=== PATIENT | male | born 1970 | race Caucasian/White ===

== ENCOUNTER 2023-09-26 00:07 | Inpatient (IN) ==
--- NOTE | 2023-09-26 00:37 | Emergency Department Note ---
Impression & Plan Pericardial effusion, Syncope, UTI (urinary tract infection), SIRS (systemic inflammatory response syndrome) Admit to the ICU ED Provider Note NAME: HAILEY LOPEZ AGE: 52 SEX: Male INFORMANT: Patient and his ED PROVIDER(S): Hilary Barone DO CHIEF COMPLAINT: Syncope PLAN: Admit to the [facility] Hospitalist and interventional cardiology to drain the pericardial effusion MEDICAL DECISION MAKING: This is a 52-year-old male patient who presents with left-sided chest discomfort for the past 1 week as a result of straining his chest using dumbbells. Tonight, the patient felt a wave of nausea and got up quickly to go to the bathroom and had a syncopal event. On presentation to the emergency department, the patient was hypotensive and tachycardic. Laboratory studies revealed a leukocytosis with a white blood cell count of 18.5. He had an elevated BUN at 27. Physical exam revealed signs of dehydration. Transaminases were elevated and total bilirubin was 1.9. The patient was afebrile. Possible source of infection was his urine. Lactate and procalcitonin were normal. While here in the emergency department receiving an IV dose of cefepime, the patient had an episode of bradycardia down into the 40s and a second episode of syncope. He was laid flat in the Trendelenburg position as he was significantly hypotensive with a systolic blood pressure in the 70s. At this point a CT scan of the chest was obtained given the patient's weeklong history of left-sided chest discomfort which she thought was secondary to a muscle strain from going to the gym. The CT showed evidence of a large pericardial effusion with significant pericardial thickening. There were no obvious signs of tamponade at this point. I discussed the case with Dr. Alvarado from cardiology and he will take the patient to the [facility] for pericardiocentesis. Care/management discussed with: manager image, [facility] Hospitalist, wrapper selector Triage Nursing notes: Reviewed and agree with them. Vital Signs: reviewed and remarkable for hypotension and tachycardia Additional History obtained from: His is at the bedside Differential Diagnosis: Renal failure, dehydration, cardiac dysrhythmia, cardiac ischemia, sepsis Diagnostics, independently interpreted by me: ECG: Sinus tachycardia at a rate of [address] segment elevation or signs of ischemia. There is no ectopy. QTc is 400 ms. Cardiac Monitoring: Sinus tachycardia at 120 Imaging studies: Portable chest x-ray: Mild cardiomegaly with no significant pulmonary infiltrates or opacities as per my independent interpretation CTA of the chest: As per stat read HPI: 52 year old Male arrives for evaluation of syncope. the patient felt a wave of nausea and got up quickly to go to the bathroom and had a syncopal event. Patient was brought here to the emergency department for evaluation. He explains that over the past 1 week he has had some left-sided chest discomfort after he thought that he strained his pectoral muscle with a dumbbell 9 days ago. He has been using Aleve for the pain. PAST MEDICAL HISTORY: GERD, sleep apnea SOCIAL HISTORY: Lives with his , does not smoke. 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 Pupils are equal, round, and reactive to light. Extraocular eye muscles are intact and sclera are anicteric. Ears - bilaterally patent canals with noninjected tympanic membranes and no evidence of hemotympanum. Nose - moist nasal mucosa without discharge. Mouth - moist buccal mucosa. Oropharynx is nonerythematous and there is no tonsillar exudate or edema noted. Neck: Supple; no JVD, nuchal rigidity, cervical lymphadenopathy, or auscultated bruits. Heart: Tachycardic rate and regular there is a normal S1 and S2 with no murmurs, clicks, or gallops appreciated. Lungs: Clear to auscultation bilaterally with no wheezes, rales, or rhonchi. Abdomen: Soft, completely nontender, nondistended, with good bowel sounds. There are no palpable pulsatile masses or hepatosplenomegaly. There is no guarding, rigidity, or rebound noted. Extremities: No evidence of cyanosis, clubbing, or edema. There are easily palpable peripheral pulses. Neuro:The patient is awake and alert, oriented to day, time, and place. Muscle strength is 5/5 in all 4 extremities. The patient has equal plasterer stucco strength and equal pedal push and pull. There are no cerebellar signs. Emergency department treatment: school bus monitor, IV normal saline bolus x 3, IV cefepime Emergency department course: The patient was evaluated in room A-3. A complete history and physical was performed. An IV lock was initiated and labs were drawn as above. A septic protocol was performed. Urine specimen was obtained. A portable chest x-ray was performed. Bio fire was performed. An order was placed for continuous cardiac monitoring. The patient was in a sinus tachycardia at a rate of 120. A twelve-lead EKG was obtained. Patient was bolused with IV normal saline solution. Patient continued to receive additional IV normal saline up to 30 mL/kg per sepsis protocol. He was bolused with IV cefepime for what appeared to be a urinary tract infection. During that bolus, the patient became bradycardic with a heart rate in the 40s. Nursing staff alerted me and I came to the bedside and found the patient somewhat responsive. He was placed in the Trendelenburg position. A second IV lock was initiated and the patient was bolused with additional IV normal saline solution. Patient's systolic blood pressure dropped into the 70s. After short period of time, his blood pressure rebounded. Patient went for dissection study of the chest to rule out aortic dissection and/or PE. This revealed a large pericardial effusion with a significantly thickened pericardial wall. I immediately contacted Dr. Alvarado from interventional cardiology who recommended we call a heart alert. They evaluated the patient. I contacted the [facility] Hospitalist who also evaluated the patient. I have personally spent greater than 70 minutes of critical care time in the direct management of this patient. This includes bedside care, interpretation of diagnostic studies, and testing, discussion with consultants, patient, and family members, and other required patient management activities. This 70 minutes is in excess of all separately billable procedures. Past Med/Surg History Social History Smoking Status: Never smoker Tobacco Type: Cigarettes Hx Alcohol Use: No Hx Substance Use: No Preferred Language: Mongolian Beliefs That Will Affect Care: None Current Living Situation: Spouse Other Information That Helps Us Care for You: No Feels Safe at Home: Yes Safety Concerns: Feels Safe At This Time Assistive Devices: Glasses Allergies Allergies Allergy/AdvReac Type Severity Reaction Status Date / Time cat dander Allergy Intermediate CONGESTION Verified 09/26/23 00:44 house dust Allergy Intermediate CONGESTION Verified 09/26/23 00:44 Home Meds Home Medications Medication Instructions Recorded Confirmed naproxen sodium 220 mg tablet 220 mg PO BID PRN Pain 09/26/23 09/26/23 (Aleve) omeprazole magnesium 20 mg 20 mg PO DAILY 09/26/23 09/26/23 tablet,delayed release (Prilosec OTC) Results & Data (ED) Vital Signs Vital Signs - 24 hr 09/26/23 00:11 09/26/23 00:14 Temperature 37.5 C Temperature Source Oral Pulse Rate 120 H Respiratory Rate 18 Respiratory Effort / Characteristics Non-Labored Respiratory Depth Normal Respiratory Pattern Regular Blood Pressure 98/65 L Blood Pressure Mean 76 Pulse Oximetry 96 Oxygen Delivery Method Room Air Room Air Sepsis Recent Fever Within 48 Hours No Sepsis New/Unexplained Change in Mental Status N/A Sepsis Action Taken by Nursing No Action Required Laboratory Data 09/27/23 04:35 09/27/23 04:35 Lab Results 09/26/23 09/26/23 09/26/23 Range/Units 00:12 01:22 02:21 WBC 18.51 H (4.8-10.8) K/ul RBC 5.07 (4.70-6.10) M/uL Hgb 14.9 (14.0-18.0) g/dl Hct 45.1 (42.0-52.0) % MCV 89.0 (80.0-100.0) fL MCH 29.4 (25.0-34.0) pg MCHC 33.0 (32.0-36.0) g/dL RDW Std Deviation 47.0 H (36.4-46.3) fL RDW Coeff of Chata 14.6 H (11.5-14.5) % Plt Count 359 (130-400) K/uL MPV 9.9 (9.4-12.4) fL Immature Gran % (Auto) 0.9 % Neut % (Auto) 75.2 % Lymph % (Auto) 12.8 % [place] % (Auto) 10.6 % Eos % (Auto) 0.2 % Baso % (Auto) 0.3 % Neut # (Auto) 13.92 H (1.40-6.50) K/uL Lymph # (Auto) 2.37 (1.20-3.40) K/uL [place] # (Auto) 1.96 H (0.11-0.59) K/uL Eos # (Auto) 0.03 (0.00-0.50) K/uL Baso # (Auto) 0.06 (0.00-0.20) K/uL Immature Gran # (Auto) 0.17 (0.01-0.20) K/uL ESR 50 H (0-20) mm/hr PT 11.8 (9.0-12.0) Seconds INR 1.1 (0.9-1.1) Sodium 133 L (136-145) mmol/L Potassium 4.6 (3.5-5.1) mmol/L Chloride 98 (98-107) mmol/L Carbon Dioxide 27 (21-32) mmol/L Anion Gap 8 (3-11) BUN 27 H (6-23) mg/dl Creatinine 1.24 (0.6-1.4) mg/dl Est Cr Clr Drug Dosing Not Reportable Est GFR ( Amer) 76.4 ml/min Est GFR (Non-Af Amer) 66.0 ml/min BUN/Creatinine Ratio 21.8 H (10-20) Glucose 158 H (70-99(Fasting)) mg/dl POC Glucose (70-99) mg/dl Lactate 1.8 (0.4-2.0) mmol/L Calcium 9.4 (8.6-10.3) mg/dl Total Bilirubin 1.9 H (0.2-1.0) mg/dl AST 37 (13-39) U/L ALT 57 H (7-52) U/L Alkaline Phosphatase 186 H (34-104) U/L Troponin I High Sens 17.4 (0-20) pg/ml C-Reactive Protein 27.30 H (0-0.5) mg/dl Total Protein 7.1 (6.0-8.3) gm/dl Albumin 3.8 (3.4-5.0) gm/dl Globulin 3.3 (2.5-4.0) gm/dl Albumin/Globulin Ratio 1.2 (0.9-2) Procalcitonin 0.20 (0-0.5) ng/ml TSH 3.653 (0.300-4.500) uIu/ml Urine Color Chase Urine Appearance Cloudy A (Clear) Urine pH 5.0 (4.5-7.5) Ur Specific [place] 1.041 H (1.000-1.030) Urine Protein 2+ H (Negative) Urine Glucose (UA) Trace H (Negative) Urine Ketones Negative (Negative) Urine Blood Trace H (Negative) Urine Nitrite Positive A (Negative) Urine Bilirubin 2+ H (Negative) Urine Urobilinogen Negative (Negative) Ur Leukocyte Esterase 1+ H (Negative) Urine RBC 5-10 H (0-4) /hpf Urine WBC 5-10 H (0-5) /hpf Ur Epithelial Cells 0-5 (0-5) /lpf Urine Bacteria 1+ H (Negative) Hyaline Casts 0-5 (0-5) /lpf Urine Mucus Present A (None Prsent) Adenovirus (PCR) Not Detected (NotDetected) B. pertussis DNA (PCR) Not Detected (NotDetected) B.parapertussis DNA PCR Not Detected (NotDetected) C. pneumoniae DNA (PCR) Not Detected (NotDetected) Coronavirus OC43 (PCR) Not Detected (NotDetected) Coronavirus HKU1 (PCR) Not Detected (NotDetected) Coronavirus 229E (PCR) Not Detected (NotDetected) SARS-CoV-2 (PCR) Not Detected (NotDetected) Coronavirus NL63 (PCR) Not Detected (NotDetected) Human Metapneumovir PCR Not Detected (NotDetected) Influenza Type A (PCR) Not Detected (NotDetected) Influenza Type B (PCR) Not Detected (NotDetected) M. pneumoniae (PCR) Not Detected (NotDetected) Parainfluenza 1 (PCR) Not Detected (NotDetected) Parainfluenza 2 (PCR) Not Detected (NotDetected) Parainfluenza 3 (PCR) Not Detected (NotDetected) Parainfluenza 4 (PCR) Not Detected (NotDetected) RSV (PCR) Not Detected (NotDetected) Entero/Rhino (PCR) Not Detected (NotDetected) Blood Type Antibody Screen 09/26/23 09/26/23 Range/Units 02:41 03:36 WBC (4.8-10.8) K/ul RBC (4.70-6.10) M/uL Hgb (14.0-18.0) g/dl Hct (42.0-52.0) % MCV (80.0-100.0) fL MCH (25.0-34.0) pg MCHC (32.0-36.0) g/dL RDW Std Deviation (36.4-46.3) fL RDW Coeff of Chata (11.5-14.5) % Plt Count (130-400) K/uL MPV (9.4-12.4) fL Immature Gran % (Auto) % Neut % (Auto) % Lymph % (Auto) % [place] % (Auto) % Eos % (Auto) % Baso % (Auto) % Neut # (Auto) (1.40-6.50) K/uL Lymph # (Auto) (1.20-3.40) K/uL [place] # (Auto) (0.11-0.59) K/uL Eos # (Auto) (0.00-0.50) K/uL Baso # (Auto) (0.00-0.20) K/uL Immature Gran # (Auto) (0.01-0.20) K/uL ESR (0-20) mm/hr PT (9.0-12.0) Seconds INR (0.9-1.1) Sodium (136-145) mmol/L Potassium (3.5-5.1) mmol/L Chloride (98-107) mmol/L Carbon Dioxide (21-32) mmol/L Anion Gap (3-11) BUN (6-23) mg/dl Creatinine (0.6-1.4) mg/dl Est Cr Clr Drug Dosing Est GFR ( Amer) ml/min Est GFR (Non-Af Amer) ml/min BUN/Creatinine Ratio (10-20) Glucose (70-99(Fasting)) mg/dl POC Glucose 147 H (70-99) mg/dl Lactate (0.4-2.0) mmol/L Calcium (8.6-10.3) mg/dl Total Bilirubin (0.2-1.0) mg/dl AST (13-39) U/L ALT (7-52) U/L Alkaline Phosphatase (34-104) U/L Troponin I High Sens (0-20) pg/ml C-Reactive Protein (0-0.5) mg/dl Total Protein (6.0-8.3) gm/dl Albumin (3.4-5.0) gm/dl Globulin (2.5-4.0) gm/dl Albumin/Globulin Ratio (0.9-2) Procalcitonin (0-0.5) ng/ml TSH (0.300-4.500) uIu/ml Urine Color Urine Appearance (Clear) Urine pH (4.5-7.5) Ur Specific [place] (1.000-1.030) Urine Protein (Negative) Urine Glucose (UA) (Negative) Urine Ketones (Negative) Urine Blood (Negative) Urine Nitrite (Negative) Urine Bilirubin (Negative) Urine Urobilinogen (Negative) Ur Leukocyte Esterase (Negative) Urine RBC (0-4) /hpf Urine WBC (0-5) /hpf Ur Epithelial Cells (0-5) /lpf Urine Bacteria (Negative) Hyaline Casts (0-5) /lpf Urine Mucus (None Prsent) Adenovirus (PCR) (NotDetected) B. pertussis DNA (PCR) (NotDetected) B.parapertussis DNA PCR (NotDetected) C. pneumoniae DNA (PCR) (NotDetected) Coronavirus OC43 (PCR) (NotDetected) Coronavirus HKU1 (PCR) (NotDetected) Coronavirus 229E (PCR) (NotDetected) SARS-CoV-2 (PCR) (NotDetected) Coronavirus NL63 (PCR) (NotDetected) Human Metapneumovir PCR (NotDetected) Influenza Type A (PCR) (NotDetected) Influenza Type B (PCR) (NotDetected) M. pneumoniae (PCR) (NotDetected) Parainfluenza 1 (PCR) (NotDetected) Parainfluenza 2 (PCR) (NotDetected) Parainfluenza 3 (PCR) (NotDetected) Parainfluenza 4 (PCR) (NotDetected) RSV (PCR) (NotDetected) Entero/Rhino (PCR) (NotDetected) Blood Type A Positive Antibody Screen NEGATIVE Administered Medications Acetaminophen (Acetaminophen 325 Mg Tab) 650 mg PO Q4H PRN PRN Reason: Pain Stop: 10/26/23 14:19 Last Admin: 09/27/23 03:46 Dose: 650 mg Documented By: Admin: 09/26/23 14:51 Dose: 650 mg Documented By: AMB Colchicine (Colchicine 0.6 Mg Tab) 0.6 mg PO BID [facility] Stop: 10/26/23 09:59 Last Admin: 09/26/23 20:35 Dose: 0.6 mg Documented By: Admin: 09/26/23 11:04 Dose: 0.6 mg Documented By: HERBERT Cefepime HCl 2,000 mg/ Syringe 20 mls @ 5 mls/min IV Q8H [facility]; Protocol Stop: 10/06/23 10:29 Last Admin: 09/27/23 02:45 Dose: 5 mls/min Documented By: Admin: 09/26/23 17:36 Dose: 5 mls/min Documented By: Admin: 09/26/23 11:04 Dose: 5 mls/min Documented By: HERBERT Miscellaneous (Icu Protocol For Hyperglycemia) 1 each N/A ACHS [facility] Stop: 09/28/23 08:07 Last Admin: 09/27/23 07:41 Dose: Not Given Documented By: Admin: 09/26/23 20:36 Dose: 1 each Documented By: Admin: 09/26/23 16:57 Dose: Not Given Documented By: Admin: 09/26/23 12:15 Dose: Not Given Documented By: Admin: 09/26/23 08:46 Dose: Not Given Documented By: HERBERT Morphine Sulfate (Morphine Sulfate 2 Mg/Ml Carp) 2 mg IV Q6H PRN PRN Reason: Moderate Pain (Scale 4, 5, 6) Stop: 10/10/23 21:49 Last Admin: 09/27/23 05:30 Dose: 2 mg Documented By: Admin: 09/26/23 22:06 Dose: 2 mg Documented By: SERVANDO Pantoprazole Sodium (Pantoprazole 40 Mg Tab) 40 mg PO DAILY [facility] Stop: 10/26/23 08:59 Last Admin: 09/26/23 11:04 Dose: 40 mg Documented By: HERBERT Discontinued Medications Fentanyl Citrate (Fentanyl Citrate Pf 100 Mcg/2 Ml Vial) Confirm Administered Dose 100 mcg .ROUTE .STK-MED ONE Stop: 09/26/23 04:25 Last Increment: 09/26/23 07:05 Dose: 50 mcg Documented By: SATYA Heparin Sodium (Porcine) (Heparin (Porcine) 1000 Unit/Ml 10 Ml ([facility] Use Only)) Confirm Administered Dose 10,000 units .ROUTE .STK-MED ONE Stop: 09/26/23 04:25 Last Admin: 09/26/23 07:06 Dose: Not Given Documented By: SATYA Heparin Sodium/Sodium Chloride (Heparin In Nss Infusion 1000 Unit/500 Ml (2 U/Ml) Bag) Confirm Administered Dose 3,000 units IV .STK-MED ONE Stop: 09/26/23 04:25 Last Admin: 09/26/23 07:06 Dose: 3,000 units Documented By: SATYA Sodium Chloride (Nss) 1,000 mls @ 999 mls/hr IV .Q1H1M ONE Stop: 09/26/23 01:33 Last Infusion: 09/26/23 01:40 Dose: Infused Documented By: [facility] Admin: 09/26/23 00:40 Dose: 999 mls/hr Documented By: [facility] Sodium Chloride (Nss) 500 mls @ 999 mls/hr IV .Q31M ONE Stop: 09/26/23 01:45 Last Infusion: 09/26/23 02:11 Dose: Infused Documented By: [facility] Admin: 09/26/23 01:39 Dose: 999 mls/hr Documented By: [facility] Cefepime HCl 2,000 mg/ Syringe 20 mls @ 5 mls/min IV NOW STA; Protocol Stop: 09/26/23 02:06 Last Admin: 09/26/23 02:32 Dose: 5 mls/min Documented By: [facility] Sodium Chloride (Nss) 500 mls @ 999 mls/hr IV .Q31M ONE Stop: 09/26/23 02:48 Last Infusion: 09/26/23 03:17 Dose: Infused Documented By: [facility] Admin: 09/26/23 02:44 Dose: 999 mls/hr Documented By: [facility] Sodium Chloride (Nss) 1,000 mls @ 999 mls/hr IV .Q1H1M ONE Stop: 09/26/23 03:23 Last Infusion: 09/26/23 03:58 Dose: Infused Documented By: [facility] Admin: 09/26/23 02:33 Dose: 999 mls/hr Documented By: [facility] Lactated Ringer's (Lr) 1,000 mls @ 125 mls/hr IV .Q8H JEANNA Stop: 10/26/23 05:14 Last Infusion: 09/26/23 11:17 Dose: Infused Documented By: Admin: 09/26/23 05:52 Dose: 125 mls/hr Documented By: DONTA Ioversol (Optiray 320 125ml) 118 ml IV ONCE ONE Stop: 09/26/23 03:16 Last Admin: 09/26/23 03:15 Dose: 118 ml Documented By: MAI Midazolam HCl (Midazolam Hcl 1 Mg/Ml 2ml Vial) Confirm Administered Dose 2 mg .ROUTE .STK-MED ONE Stop: 09/26/23 04:25 Last Admin: 09/26/23 07:06 Dose: 2 mg Documented By: SATYA Nicardipine HCl (Nicardipine Hcl Inj 2.5 Mg/Ml 10 Ml Amp) Confirm Administered Dose 25 mg .ROUTE .STK-MED ONE Stop: 09/26/23 04:25 Last Admin: 09/26/23 07:07 Dose: Not Given Documented By: SATYA Nitroglycerin/Dextrose (Nitroglycerin/D5w 100mcg/Ml 20ml Syr) Confirm Administered Dose 2,000 mcg .ROUTE .STK-MED ONE Stop: 09/26/23 04:25 Last Admin: 09/26/23 07:07 Dose: Not Given Documented By: SATYA Ondansetron HCl (Ondansetron Inj 2 Mg/Ml 2 Ml Vial) 4 mg IV NOW STA Stop: 09/26/23 02:53 Last Admin: 09/26/23 07:05 Dose: Not Given Documented By: SATYA Discharge Plan Visit Data Chief Complaint: Syncope Stated Complaint: NEAR SYNCOPAL, CHEST PAIN ED Provider: Hilary Barone Discharge Problem: Pericardial effusion, Syncope, UTI (urinary tract infection), SIRS (systemic inflammatory response syndrome) Patient Disposition: Admitted As Inpatient Discharge Instructions Interventions: ED Discharge Assessment Last Done: 09/26/23 06:18 Discharge Problem: Syncope Qualifiers: Encounter type: initial encounter UTI (urinary tract infection) Qualifiers: Urinary tract infection type: site unspecified Hematuria presence: with hematuria Qualified Code(s): N39.0 - Urinary tract infection, site not specified ; R31.9 - Hematuria, unspecified
[2023-09-26] MEDS: SODIUM CHLORIDE 0.9% 1,000 ML IV ONE ×2 (00:40→02:33)
[2023-09-26 00:52] LABS: Basophils # (auto) 0.06 K/uL (0.00-0.20); Basophils % (auto) 0.3 %; Eosinophils # (auto) 0.03 K/uL (0.00-0.50); Eosinophils % (auto) 0.2 %; Hematocrit (blood only) 45.1 % (42.0-52.0); Hemoglobin 14.9 g/dl (14.0-18.0); Immature Granulocytes # (auto) 0.17 K/uL (0.01-0.20); Immature Granulocytes % (auto) 0.9 %; Lymphocytes # (auto) 2.37 K/uL (1.20-3.40); Lymphocytes % (auto) 12.8 %; Mean Corpuscular Hemoglobin 29.4 pg (25.0-34.0); Mean Platelet Volume 9.9 fL (9.4-12.4); Monocytes # (auto) 1.96 K/uL (0.11-0.59); Monocytes % (auto) 10.6 %; Neutrophils # (auto) 13.92 K/uL (1.40-6.50); Neutrophils % (auto) 75.2 %; Platelet Count 359 K/uL (130-400); RDW Coefficient of Variation 14.6 % (11.5-14.5); Red Blood Count 5.07 M/uL (4.70-6.10); White Blood Count 18.51 K/ul (4.8-10.8)
[2023-09-26 00:54] LABS: Alanine Aminotransferase 57 U/L (7-52); Albumin Globulin Ratio 1.2 (0.9-2); Albumin Level 3.8 gm/dl (3.4-5.0); Alkaline Phosphatase 186 U/L (34-104); Anion Gap 8 (3-11); Aspartate Aminotransferase 37 U/L (13-39); BUN Creatinine Ratio 21.8 (10-20); Bilirubin,Total 1.9 mg/dl (0.2-1.0); Blood Urea Nitrogen 27 mg/dl (6-23); Calcium 9.4 mg/dl (8.6-10.3); Carbon Dioxide 27 mmol/L (21-32); Chloride 98 mmol/L (98-107); Est GFR (African American) 76.4 ml/min; Globulin 3.3 gm/dl (2.5-4.0); Glucose 158 mg/dl (70-99(Fasting)); Potassium 4.6 mmol/L (3.5-5.1); Sodium 133 mmol/L (136-145); Total Protein 7.1 gm/dl (6.0-8.3)
[2023-09-26 01:01] LABS: Troponin I High Sensitivity 17.4 pg/ml (0-20)
[2023-09-26 01:11] LABS: Thyroid Stimulating Hormone 3.653 uIu/ml (0.300-4.500)
[2023-09-26] MEDS: SODIUM CHLORIDE 0.9% 500 ML IV ONE ×2 (01:39→02:44)
[2023-09-26 01:48] LABS: Appearance Urine Cloudy (Clear); Bilirubin Urine 2+ (Negative); Blood Urine Trace (Negative); Color Urine Orange; Glucose Urine UA Trace (Negative); Ketones Urine Negative (Negative); Leukocyte Esterase Urine 1+ (Negative); Nitrite Urine Positive (Negative); Protein Urine 2+ (Negative); Specific Gravity Urine 1.041 (1.000-1.030); Urobilinogen Urine Negative (Negative)
[2023-09-26 01:59] LABS: Bacteria Urine 1+ (Negative); Epithelial Cell Urine 0-5 /lpf (0-5); Hyaline Casts Urine 0-5 /lpf (0-5); Mucus Urine Present (None Prsent)
[2023-09-26 02:29] LABS: Adenovirus PCR Not Detected (NotDetected); Bordetella parapertussis PCR Not Detected (NotDetected); Bordetella pertussis PCR Not Detected (NotDetected); Chlamydia pneumoniae PCR Not Detected (NotDetected); Coronavirus 229E PCR Not Detected (NotDetected); Coronavirus CoV-2 (COVID19)PCR Not Detected (NotDetected); Coronavirus HKU1 PCR Not Detected (NotDetected); Coronavirus NL63 PCR Not Detected (NotDetected); Coronavirus OC43PCR Not Detected (NotDetected); Human Metapneumovirus PCR Not Detected (NotDetected); Influenza A PCR Not Detected (NotDetected); Influenza B PCR Not Detected (NotDetected); Mycoplasma pneumoniae PCR Not Detected (NotDetected); Parainfluenza Virus 1 PCR Not Detected (NotDetected); Parainfluenza Virus 2 PCR Not Detected (NotDetected); Parainfluenza Virus 3 PCR Not Detected (NotDetected); Parainfluenza Virus 4 PCR Not Detected (NotDetected); Respiratory Syncytial VirusPCR Not Detected (NotDetected); Rhinovirus/Enterovirus PCR Not Detected (NotDetected)
[2023-09-26] MEDS: CEFEPIME 2,000 MG in SYRINGE 0 ML IV STA (02:32)
--- NOTE | 2023-09-26 02:38 | History & Physical Report ---
Date of Service September 26, 2023 Assessment & Plan (1) Pericardial effusion: (2) Syncope: (3) UTI (urinary tract infection): (4) Sepsis: Plan Pericardial Effusion | Syncope -CTA chest showing large pericardial effusion with thickened pericardial wall -Heart alert called, Dr. Alvarado at bedside and planning to drain effusion -Echo ordered, will be completed prior to procedure -Plan to admit patient to ICU after procedure for further monitoring -Continue maintenance fluids LR @ 125/hr UTI | Leukocytosis | Sepsis -WBC of 18.5 on admission. ProCal 0.2, Lactate 1.8. -UA concerning for infection, urine and blood cultures pending -Received 1 dose of Cefepime in ED, will continue Cefepime and tailor antibiotics based on cultures -Continue maintenance fluids as above Diet: NPO, IVF Code Status: Full Code Admit to: ICU VTE Prophylaxis: Holding prior to procedure History of Present Illness Primary Care Provider: Terence Cobos MD Tin Lyons is a 52 year-old male with past medical history of GERD and mild sleep apnea who presented to the ED for a syncopal episode. He notes that he was seated at home when he felt a "warm millard" and wave a nausea before he passed out and fell to the floor. He states he did "black out" but did not hit his head and came to within seconds. He notes he has also had some left sided chest pain for the wpast week which started after lifting some heavy weights while working out- assumed he just pulled a muscle (as he has torn her pec muscle in the past) and has been taken naproxen for this. His notes that he has been feeling a bit "off" for the same time frame but neither can pinpoint specific symptoms. He has been eating and drinking normally, denies any urinary symptoms except his urine looking slightly darker in color. He notes having a kidney stone about 20 years ago but has not had any kidney or urinary issues since then. He denies any shortness of breath or abdominal pain. Patient does note that last week he had a red "blister" at his left axilla, it later opened and seemed to drain but is no longer painful or bothersome. Prior to encounter, patient had an additional syncopal episode. At time of entering, patient's symptoms had resolved and was resting comfortably although patient's head appeared slightly dusky in color. ED Course: -Chest x-ray, CTA chest -1x Cefepime -ProCal, lactate WNL. UA and blood cultures collected - ~2L NSS boluses Allergies Allergy/AdvReac Type Severity Reaction Status Date / Time cat dander Allergy Intermediate CONGESTION Verified 09/26/23 00:44 house dust Allergy Intermediate CONGESTION Verified 09/26/23 00:44 Home Medications Medication Instructions Recorded Confirmed Type naproxen sodium 220 mg tablet 220 mg PO BID PRN Pain 09/26/23 09/26/23 History (Aleve) omeprazole magnesium 20 mg 20 mg PO DAILY 09/26/23 09/26/23 History tablet,delayed release (Prilosec OTC) Past Med/Surg History Social History Smoking Status: Never smoker Tobacco Type: Cigarettes Hx Alcohol Use: No Hx Substance Use: No Preferred Language: Yi Beliefs That Will Affect Care: None Current Living Situation: Spouse Other Information That Helps Us Care for You: No Feels Safe at Home: Yes Safety Concerns: Feels Safe At This Time Assistive Devices: Glasses Review of Systems Review of Systems: As per above Physical Exam Constitutional: WD/WN, vitals as above no acute distress Eyes: + anicteric sclerae and PERRL; no conjun ctival abnormality ENMT: Ears: no external ear abnormality Nose: no external nose abnormality Face/head appears slightly dusky after syncopal episode. On re-evaluation, face of normal color. Respiratory: normal respiratory effort; no respiratory distress Auscultation: lungs clear to auscultation bilaterally Breaths slightly shallow Cardiovascular: Rate/Rhythm: regular rate and regular rhythm Extremities: no edema Limbs well perfused Gastrointestinal (Abdomen): normal bowel sounds, soft, nontender, no hepatosplenomegaly Skin: 1cm erythematous raised bump at left axi lla, no extending erythema or fluctuance. Nontender to palpation Psychiatric: A+Ox3, euthymic affect Results & Data Results & Data Vital Signs (Past 12 Hours) Vital Signs Temp Pulse Pulse Resp BP BP Pulse Ox 09/26/23 01:58 105 H 18 105/72 99 09/26/23 01:00 113 H 23 97 09/26/23 00:45 118 H 18 96 09/26/23 00:37 122 H 14 101/81 95 09/26/23 00:36 120 H 09/26/23 00:14 37.5 C 120 H 18 98/65 L 96 09/26/23 00:11 O2 Del Method 09/26/23 01:58 09/26/23 01:00 09/26/23 00:45 Room Air 09/26/23 00:37 09/26/23 00:36 09/26/23 00:14 Room Air 09/26/23 00:11 Room Air Diagnostic Findings Chest CTA 09/26/23 02:49 Exam(s): CTA CHEST W/WO Contrast IV Amt: 118 cc's optiray 320 EXAM: CT Angiography Chest Without and With Intravenous Contrast CLINICAL HISTORY: Reason for exam: chest pain. TECHNIQUE: Axial computed tomographic angiography images of the chest without and with intravenous contrast. Automated exposure control was utilized for the study. A dose lowering technique was utilized adhering to the principles of ALARA. MIP reconstructed images were created and reviewed. CONTRAST: Patient received 118 cc's optiray 320 of IV contrast COMPARISON: No relevant prior studies available. FINDINGS: Pulmonary arteries: Unremarkable. No CT evidence of pulmonary embolism. Aorta: No acute findings. No thoracic aortic aneurysm. Lungs: See below. Pleural space: Small left pleural effusion with bibasilar atelectasis. No pneumothorax. Heart: Large pericardial effusion with thickened pericardial wall. No definite deformity of the right ventricle. Bones/joints: No acute fracture. No dislocation. Soft tissues: Unremarkable. Lymph nodes: Unremarkable. No enlarged lymph nodes. IMPRESSION: 1. Large pericardial effusion with thickened pericardial wall. No definite deformity of the right ventricle. 2. No CT evidence of pulmonary embolism. Electronically signed by: Maximino Fuentes M.D. 09/26/23 03:33 AM Supervising Physician Co-Signing Physician Notes Patient seen and examined, chart reviewed, case discussed with Dr. Kothari and I agree with the assessment and plan as above Resident Activity Tracking Resident Involvement: Resident Care Provided Care Provided: Adult [facility]
[2023-09-26] MEDS: OPTIRAY 320 125ml IV ONE (03:15)
--- NOTE | 2023-09-26 03:33 | CT Scan Report ---
Exam(s): CTA CHEST W/WO Contrast IV Amt: 118 cc's optiray 320 EXAM: CT Angiography Chest Without and With Intravenous Contrast CLINICAL HISTORY: Reason for exam: chest pain. TECHNIQUE: Axial computed tomographic angiography images of the chest without and with intravenous contrast. Automated exposure control was utilized for the study. A dose lowering technique was utilized adhering to the principles of ALARA. MIP reconstructed images were created and reviewed. CONTRAST: Patient received 118 cc's optiray 320 of IV contrast COMPARISON: No relevant prior studies available. FINDINGS: Pulmonary arteries: Unremarkable. No CT evidence of pulmonary embolism. Aorta: No acute findings. No thoracic aortic aneurysm. Lungs: See below. Pleural space: Small left pleural effusion with bibasilar atelectasis. No pneumothorax. Heart: Large pericardial effusion with thickened pericardial wall. No definite deformity of the right ventricle. Bones/joints: No acute fracture. No dislocation. Soft tissues: Unremarkable. Lymph nodes: Unremarkable. No enlarged lymph nodes. IMPRESSION: 1. Large pericardial effusion with thickened pericardial wall. No definite deformity of the right ventricle. 2. No CT evidence of pulmonary embolism. Electronically signed by: Maximino Fuentes M.D. 09/26/23 03:33 AM
[2023-09-26 05:19] LABS: INR 1.1 (0.9-1.1); Prothrombin Time 11.8 Seconds (9.0-12.0)
[2023-09-26] MEDS: LACTATED RINGER'S 1,000 ML IV SCH (05:52)
--- NOTE | 2023-09-26 05:56 | Critical Care Consultation ---
Date of Consultation September 26, 2023 Assessment & Plan (1) Pericardial effusion: (2) UTI (urinary tract infection): (3) GERD (gastroesophageal reflux disease): (4) Elevated serum glucose: (5) SIRS (systemic inflammatory response syndrome): Plan Reason Critically Ill: 52 YOM presents with syncope from home and found to have moderate to large pericardial effusion without current tamponade physiology, he is pending going to interventional suite for drainage by interventional cardiology this morning. Neuro - No acute needs CAM ICU: NEGATIVE Cardiac - Pericardial Effusion- subacute likely, syncope - Await cytology results from drainage of effusion - differential broad at this time- likely subacute with amount of fluid and symptoms- - ESR, CRP, EBV rapid panel, CMV- pending - Job exposure as questionable possibility- works in [employer] at [employer] - [employer] and screen - Continue with IVF as he is with favorable hemodynamics and well perfused at this time on physical exam - Syncope is likely in the setting of pericardial effusion Respiratory - NO acute needs - CXR and CTA of chest without acute pulmonary process or embolism GI - GERD - continue PPI RENAL/LYTES - NO acute needs - See ID below - Unsure of his PSA screening or urinary habits- evaluate closer following procedure if malignancy remains on diff ENDO - Elevated serum glucose without diagnosis of DM - ICU hyperglycemia protocol - goal <180mg/dl - Defer HGBA1c and management to medicine or PCP HEME - Leukocytosis - See below - Await cytology from his pericardial fluid ID - SIRS, UTI - Patient technically meets SIRS with tachycardia and elevated WBC - sepsis criteria met with urine as possible source - UA with LE, NI, bacteria +1 - await culture - PCT negative - Await culture results from his pericardial effusion as well LINES/IV ACCESS - PIV Continue use of these lines DVT PROPHYLAXIS - SCDS, hold chemoprophylaxis at this time for planned p ericardicentesis and while drain is in place DISPO: ICU until drain removed and/or hemodynamics proven stable I have personally spent 50 minutes of critical care time in the direct management of this patient. This is a life/limb threatening event. This includes time spent evaluating patient, direct bedside care, chart review, placing orders, interpretation of diagnostic studies, discussion with consultants, patient, and family members, as well as other required patient management activities. This time is exclusive of all separately billable procedures, and separate from and in addition to any other critical care service time. Thank you for allowing us to participate in the care of this patient. Please refer to my attending physician's documentation for any further recommendations. Supervising Physician Co-Signing Physician Notes Patient seen and examined. EMR reviewed. Discussed with critical care ALFREDO as well as with cardiology. Pericardial effusion of unclear etiology. Await fluid characteristics. No clear exposures. Denies any recent tick bites. Cultures are pending. He has been initiated on antibiotics for possible cystitis but this may be contaminated specimen. Will send HOSEA screen as well although no other symptoms to suggest a systemic process contributing to serositis. Follow drain output and repeat echocardiogram. Keep in ICU as long as pericardial drain is in place. Okay to initiate diet Discussed with patient as well as bedside clinical care nurse and on multidisciplinary rounds History of Present Illness Reason for Consultation: Pericardial Effusion Requesting Physician: Rose Anderson MD Attending Physician: Rose Anderson MD History of Present Illness 52 YOM with medical history of: Obesity, GERD. 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 Patient presents to the [facility] just after midnight on 09/26/23 for syncopizing at home. The patient states he got a quick wave of nausea feeling as he was going to throw up and got up to go to the bathroom and when he got up and got moving he just passed out. He came to right after without any confusion, but his says he was pale looking. The patient states that he has been feeling well this past week and not feeling ill or any recent infections, no recent travel, and no new pets. He does state that about 2 weeks ago he was lifting barbells and felt sharp pain on his left side of his chest that also radiated to his back. He felt that at that time it was the same feeling he had when he torn his pectoral muscle in the past. Following that for a few days, he was unable to lay flat due to the pain in his left upper back and chest. He would need to sit up or lay on his side to feel better. This progressively got better and he was able to lay flat. he also noticed that he would get more short of breath than normal over the past few weeks but nothing that made him have to stop. He denies any current chest pain or dyspnea. In the ER he has been tachycardic up to the 120s with stable blood pressure, he had CXR that had no lung opacities but noting enlarged heart, he had a CT scan of his chest done with and without contrast which revealed a moderate to large pericardial effusion. Routine lab work revealed leukocytosis, UA with Nitrities, LE and 1+ bacteria, viral panel was negative. He received 3 Liters of crystalloid in the EMD as well as Zofran. He was evaluated by Interventional Cardiology Dr. 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 CODE: FULL Allergies Allergy/AdvReac Type Severity Reaction Status Date / Time cat dander Allergy Intermediate CONGESTION Verified 09/26/23 00:44 house dust Allergy Intermediate CONGESTION Verified 09/26/23 00:44 Home Medications Medication Instructions Recorded Confirmed Type naproxen sodium 220 mg tablet 220 mg PO BID PRN Pain 09/26/23 09/26/23 History (Aleve) omeprazole magnesium 20 mg 20 mg PO DAILY 09/26/23 09/26/23 History tablet,delayed release (Prilosec OTC) Patient History Social History Smoking Status: Current some day smoker Tobacco Type: Cigarettes Preferred Language: Bangladeshi Feels Safe at Home: Yes Review of Systems Review of Systems: REVIEW OF SYSTEMS: Constitutional: No fever, sweats or chills Eyes: No diplopia, no worsening or blurred vision ENT: normal hearing, no trouble swallowing Respiratory: (+) dyspnea with exertion, No cough, sputum, dyspnea at rest or Cardiovascular: (+) chest pain left side with left back pain, NO tightness or palpitations Abdomen: No pain, nausea, vomiting, diarrhea or constipation Musculoskeletal: (+) chronic back and knee joint pain, NO calf pain, swelling Neurologic: No weakness, numbness/tingling, or balance problems Psychiatric: No anxiety or depression Skin: No rash or itch Physical Exam Physical Exam: PHYSICAL EXAM: General: awake, alert, no apparent distress Head: Normocephalic, atraumatic ENT: PERRLA, EOMI, no pharyngeal exudate, mucous membranes moist Neuro: AAO x 3, speech clear and appropriate, strength intact bilaterally 5/5, sensation intact and equal all extremities and dermatomes, no pronator drift Chest: equal rise and fall of the chest, no accessory muscle use, no heaves or thrills, Clear to auscultation, on room air, Cardiac: Regular rate and rhythm, telemetry reviewed- NSR, skin warm dry, cap refill <3 seconds, peripheral pulses +2 no JVD, no murmur, S1S2 without muffling GI: NABS x 4 quadrants, soft, nontender to palpation, no rebound, guarding or tenderness : Spontaneously voiding, no pain, no CVA tenderness, Extremities: Normal inspection, no peripheral edema or erythema, calfs nontender to palpation Psych: Normal mood and affect Skin: no rash or erythema Results & Data Results & Data Vital Signs (Past 12 Hours) Vital Signs Temp Pulse Pulse Resp BP BP Pulse Ox 09/26/23 04:10 99 H 20 127/81 98 09/26/23 04:00 101 H 18 114/84 99 09/26/23 03:00 98 H 18 108/90 99 09/26/23 01:58 105 H 18 105/72 99 09/26/23 01:00 113 H 23 97 09/26/23 00:45 118 H 18 96 09/26/23 00:37 122 H 14 101/81 95 09/26/23 00:36 120 H 09/26/23 00:14 37.5 C 120 H 18 98/65 L 96 09/26/23 00:11 O2 Del Method 09/26/23 04:10 09/26/23 04:00 09/26/23 03:00 09/26/23 01:58 09/26/23 01:00 09/26/23 00:45 Room Air 09/26/23 00:37 09/26/23 00:36 09/26/23 00:14 Room Air 09/26/23 00:11 Room Air Laboratory Results Abnormal lab results 09/26/23 09/26/23 09/26/23 Range/Units 00:12 01:22 02:41 WBC 18.51 H (4.8-10.8) K/ul RDW Std Deviation 47.0 H (36.4-46.3) fL RDW Coeff of Chata 14.6 H (11.5-14.5) % Neut # (Auto) 13.92 H (1.40-6.50) K/uL Davison # (Auto) 1.96 H (0.11-0.59) K/uL Sodium 133 L (136-145) mmol/L BUN 27 H (6-23) mg/dl BUN/Creatinine Ratio 21.8 H (10-20) Glucose 158 H (70-99(Fasting)) mg/dl POC Glucose 147 H (70-99) mg/dl Total Bilirubin 1.9 H (0.2-1.0) mg/dl ALT 57 H (7-52) U/L Alkaline Phosphatase 186 H (34-104) U/L Urine Appearance Cloudy A (Clear) Ur Specific [place] 1.041 H (1.000-1.030) Urine Protein 2+ H (Negative) Urine Glucose (UA) Trace H (Negative) Urine Blood Trace H (Negative) Urine Nitrite Positive A (Negative) Urine Bilirubin 2+ H (Negative) Ur Leukocyte Esterase 1+ H (Negative) Urine RBC 5-10 H (0-4) /hpf Urine WBC 5-10 H (0-5) /hpf Urine Bacteria 1+ H (Negative) Urine Mucus Present A (None Prsent) Diagnostic Findings Chest CTA 09/26/23 02:49 Exam(s): CTA CHEST W/WO Contrast IV Amt: 118 cc's optiray 320 EXAM: CT Angiography Chest Without and With Intravenous Contrast CLINICAL HISTORY: Reason for exam: chest pain. TECHNIQUE: Axial computed tomographic angiography images of the chest without and with intravenous contrast. Automated exposure control was utilized for the study. A dose lowering technique was utilized adhering to the principles of ALARA. MIP reconstructed images were created and reviewed. CONTRAST: Patient received 118 cc's optiray 320 of IV contrast COMPARISON: No relevant prior studies available. FINDINGS: Pulmonary arteries: Unremarkable. No CT evidence of pulmonary embolism. Aorta: No acute findings. No thoracic aortic aneurysm. Lungs: See below. Pleural space: Small left pleural effusion with bibasilar atelectasis. No pneumothorax. Heart: Large pericardial effusion with thickened pericardial wall. No definite deformity of the right ventricle. Bones/joints: No acute fracture. No dislocation. Soft tissues: Unremarkable. Lymph nodes: Unremarkable. No enlarged lymph nodes. IMPRESSION: 1. Large pericardial effusion with thickened pericardial wall. No definite deformity of the right ventricle. 2. No CT evidence of pulmonary embolism. Electronically signed by: Maximino Fuentes M.D. 09/26/23 03:33 AM Medications Administered Home Medications naproxen sodium 220 mg tablet (Aleve) 220 mg PO BID PRN Pain 09/26/23 [History Confirmed 09/26/23] omeprazole magnesium 20 mg tablet,delayed release (Prilosec OTC) 20 mg PO DAILY 09/26/23 [History Confirmed 09/26/23] Active Medications Lactated Ringer's (Lr) 1,000 mls @ 125 mls/hr IV .Q8H JEANNA Stop: 10/26/23 05:14 ECG Additional Comments: Sinus tachycardia Possible Left atrial enlargement Low voltage QRS Nonspecific T wave abnormality Abnormal ECG No previous ECGs available Coding Level of Care Code 19926 CRITICAL CARE 1ST 30-74M Diagnoses Pericardial effusion I31.39 UTI (urinary tract infection) N39.0 GERD (gastroesophageal reflux disease) K21.9 Elevated serum glucose R73.9 SIRS (systemic inflammatory response syndrome) R65.10
--- NOTE | 2023-09-26 05:58 | Cardiology Consultation ---
Date of Consultation September 26, 2023 Assessment & Plan (1) Pericardial effusion: Patient with recurrent syncopal episodes in the setting of large pericardial effusion with early echocardiographic signs of tamponade. Etiology of pericardial effusion unclear. Question viral vs inflammatory with some superimposed bleeding. Recommend proceeding with pericardiocentesis with drain placement for improved hemodynamics and diagnostic purposes. Will send fluid for cell count, cultures and cytology. Check HOSEA and autoimmune markers. Post procedure start colchicine. Will plan to leave drain in place overnight. History of Present Illness History of Present Illness Mr. Lyons is a very pleasant 52-year-old man seen urgently in the ED in the setting of large pericardial effusion and syncope. No prior cardiac history. Other medical issues include GERD and mild BRENDA. Patient developed left-sided chest pain approximately 1 week ago after heavy lifting. Has been taking NSAIDs intermittently since then for suspected muscle pull. Reports mild orthopnea over the last week and generally has been feeling unwell but denies any fevers/chills, palpitations, edema. Today patient got up to go to the bathroom, felt warm before passing out and falling to the floor. No preceding chest pain, palpitations, shortness of breath. No similar events in the past. In the ED patient treated for UTI/urosepsis with aggressive fluid resuscitation, antibiotics. Had chest CTA which showed large pericardial effusion. While in ED had a second episode of syncope with persistent hypotension. Cardiology consult for suspected tamponade. Hemodynamically stable on arrival after additional fluids. Bedside echo showed large pericardial effusion with borderline RV diastolic collapse, respiratory variation. Pericardial debris suggestive of possible hematoma. IVC non-dilated. Allergies Allergy/AdvReac Type Severity Reaction Status Date / Time cat dander Allergy Intermediate CONGESTION Verified 09/26/23 00:44 house dust Allergy Intermediate CONGESTION Verified 09/26/23 00:44 Home Medications Medication Instructions Recorded Confirmed Type naproxen sodium 220 mg tablet 220 mg PO BID PRN Pain 09/26/23 09/26/23 History (Aleve) omeprazole magnesium 20 mg 20 mg PO DAILY 09/26/23 09/26/23 History tablet,delayed release (Prilosec OTC) Patient History Social History Smoking Status: Current some day smoker Tobacco Type: Cigarettes Preferred Language: Yakut Feels Safe at Home: Yes Review of Systems Review of Systems: All systems reviewed & are unremarkable except as noted in HPI & below Physical Exam Physical Exam: General: Comfortable HEENT: Sclerae anicteric Lungs: Clear to auscultation bilaterally Cardiac: Regular rate and rhythm, no murmurs. Vascular: 2+ radial Abdomen: Soft, nontender Extremities: Well perfused, no peripheral edema Neuro: Nonfocal Psych: Alert orient x3, normal affect and mood Results & Data Vital Signs (Past 12 Hours) Vital Signs Temp Pulse Pulse Resp BP BP Pulse Ox 09/26/23 04:10 99 H 20 127/81 98 09/26/23 04:00 101 H 18 114/84 99 09/26/23 03:00 98 H 18 108/90 99 09/26/23 01:58 105 H 18 105/72 99 09/26/23 01:00 113 H 23 97 09/26/23 00:45 118 H 18 96 09/26/23 00:37 122 H 14 101/81 95 09/26/23 00:36 120 H 09/26/23 00:14 99.5 F 120 H 18 98/65 L 96 09/26/23 00:11 O2 Del Method 09/26/23 04:10 09/26/23 04:00 09/26/23 03:00 09/26/23 01:58 09/26/23 01:00 09/26/23 00:45 Room Air 09/26/23 00:37 09/26/23 00:36 09/26/23 00:14 Room Air 09/26/23 00:11 Room Air PG Care Time/CCT Total # of Minutes Spent Total Time Spent with Patient: Total time spent is greater than 50% in coordination of care (as documented) at patient's floor/unit and/or counseling patient: Coding Level of Care Code 70538 OFFICE CONSULT LVL 5/55M Diagnoses Pericardial effusion I31.39
--- NOTE | 2023-09-26 06:39 | Pre Anesthesia Assessment ---
Date of Service September 26, 2023 Pre Sedation Assessment Vital Signs Temp Pulse Pulse Resp BP BP Pulse Ox 09/26/23 04:10 99 H 20 127/81 98 09/26/23 04:00 101 H 18 114/84 99 09/26/23 03:00 98 H 18 108/90 99 09/26/23 01:58 105 H 18 105/72 99 09/26/23 01:00 113 H 23 97 09/26/23 00:45 118 H 18 96 09/26/23 00:37 122 H 14 101/81 95 09/26/23 00:36 120 H 09/26/23 00:14 99.5 F 120 H 18 98/65 L 96 09/26/23 00:11 O2 Del Method 09/26/23 04:10 09/26/23 04:00 09/26/23 03:00 09/26/23 01:58 09/26/23 01:00 09/26/23 00:45 Room Air 09/26/23 00:37 09/26/23 00:36 09/26/23 00:14 Room Air 09/26/23 00:11 Room Air Cardiovascular + regular rate Respiratory + respiratory effort normal Pre-Sedation Airway Assessment Smoking Status: Current some day smoker Hx Sleep Apnea: Yes Hx Difficult Intubation: No Short, Thick Neck: No Thyromental Distance: < 3.5 Finger Breadths Oral Cavity: + WNL Mallampati Class: III ASA: ASA3 Procedure Planning Contraindications for Sedation: none Current Medications Reviewed: Yes Notes The planned sedation has been discussed with the patient. Informed Consent was obtained. I have identified the patient, determined the appropriateness of sedation and have assessed the patient immediately prior to the procedure. All medicine(s) and interventions are by my order.
[2023-09-26] MEDS: fentaNYL citrate PF 100 MCG/2 ML VIAL ONE (07:05)
[2023-09-26] MEDS: ONDANSETRON INJ 2 MG/ML 2 ML VIAL IV STA (07:05)
[2023-09-26] MEDS: MIDAZOLAM HCL 1 MG/ML 2ML VIAL ONE (07:06)
[2023-09-26] MEDS: HEPARIN (PORCINE) 1000 UNIT/ML 10 ML (CATH LAB USE ONLY) ONE (07:06)
[2023-09-26] MEDS: niCARdipine HCL INJ 2.5 MG/ML 10 ML AMP ONE (07:07)
[2023-09-26] MEDS: NITROGLYCERIN/D5W 100MCG/ML 20ML SYR ONE (07:07)
--- NOTE | 2023-09-26 07:25 | Post Anesthesia Assessment ---
Date of Service September 26, 2023 Post Sedation Assessment Vital Signs Temp Pulse Pulse Resp BP BP Pulse Ox 09/26/23 04:10 99 H 20 127/81 98 09/26/23 04:00 101 H 18 114/84 99 09/26/23 03:00 98 H 18 108/90 99 09/26/23 01:58 105 H 18 105/72 99 09/26/23 01:00 113 H 23 97 09/26/23 00:45 118 H 18 96 09/26/23 00:37 122 H 14 101/81 95 09/26/23 00:36 120 H 09/26/23 00:14 99.5 F 120 H 18 98/65 L 96 09/26/23 00:11 O2 Del Method 09/26/23 04:10 09/26/23 04:00 09/26/23 03:00 09/26/23 01:58 09/26/23 01:00 09/26/23 00:45 Room Air 09/26/23 00:37 09/26/23 00:36 09/26/23 00:14 Room Air 09/26/23 00:11 Room Air Recovery Score Activity: Moves 4 extremities Respiration: Deep Breath/Cough Circulation: +/-20% PreAnes Value Consciousness: Fully Awake Oxygen Saturation: O2 needed for >90% Discharge Sedation Level of Care: Fast Track Phase II Post Sedation Plan On clinical assessment, the patient appears to have tolerated the sedation without complications. Patient is recovering as anticipated. Patient will continue to be monitored by nursing and may be discharged when sedation discharge criteria are met per below protocol. Upon Completions of procedure up to 15 minutes continue every 5 minute vital signs and the P.A.R. score; then discharge to a Phase I or Fast Track to Phase II per the following guidelines: * Discharge Patient to appropriate Phase II area if PAR is 8 or greater or return to pre- procedure baseline. The post - procedure orders will be as directed. * If PAR score is less than 8 or not return to pre-procedure baseline then patient will follow Phase I monitoring till PAR is reached for Phase II. The Phase I may be done in procedure room or may call to secure a Phase I area. * If naloxone or flumazenil are used for reversal, hold in Phase I for continued monitoring from when last reversal dose was given for a minimum of 60 minutes or longer pending the nurse and/or physician discretion of patient condition before discharge to Phase II. Please call the Sedation Physician to re-evaluate and complete post-note for discharge to Phase II area. Do NOT discharge from procedure sedation or Phase 1 until post- sedation evaluation note is complete by procedure /sedation MD Sedation Discharge Instructions to be given to the patient at discharge to home.
--- NOTE | 2023-09-26 07:36 | Cardiac Catheterization ---
[facility] Data: Outsole Leveler Cardiac Status Clinical evaluation leading to the procedure CAD Presenation: No Sxs, No angina Diagnostic Physicians Name: Terence Alvarado MD Closure Device Recommendations: Medical Therapy and/or Counseling Cardiac Cath Procedure Full Procedure Date September 26, 2023 Pre-Procedure Diagnosis Pre-Procedure Diagnosis: Pericardial Disease AUC Score AUC Score: 7 Post-Procedure Diagnosis Post-Procedure Diagnosis: Cardiothoracic Finding (Large pericardial effusion) Procedure(s) Performed Procedure(s) Performed: Pericardiocentesis Manager Baby Terence Alvarado MD Hoop Flaring Machine Operator Helper(s) Irineo Estimated Blood Loss Estimated Blood Loss: <3 Medication(s) Medication(s): Fentanyl, Lidocaine 1% and Versed Summary of Findings Pericardiocentesis Indication: Large pericardial effusion on imaging with recurrent syncope and early echocardiographic signs of tamponade Procedure: Moderate sedation with fentanyl/Versed and local 1% lidocaine Fluid approach from apical perfusion under ultrasound guidance Pericardial space accessed with micropuncture needle. Pericardial space confirmed with agitated saline injection 6 Fr sheath placed pericardial space. 6 Fr pigtail drainage catheter placed in pericardial space under fluoroscopic guidance 475 mL of serosanguineous fluid removed. 60 cc sent for laboratory studies Repeat echo images showed only trace residual pericardial effusion Drain and sheath sutured in place Initial pericardial pressure: 17 Post pericardiocentesis pericardial pressure: 4 Summary: 1. Successful pericardiocentesis with removal of 475 mL of dark serosanguineous fluid Recommendations: Manual pericardial drain aspiration every 8-12 today Possible drain removal tomorrow if limited further output Repeat limited echo in a.m. Follow-up cell counts, cultures, cytology Start colchicine Hemodynamics Rest Ao:: -- Final Ao: -- LV: -- Recommendations Recommendations: Medical Therapy and/or Counseling Radiation Exposure (mGy) 83 Contrast (mls) 0 Anesthesia Moderate [id number] Procedural Complication(s) None Disposition ICU I attest to the content of the Intraoperative Record and any orders documented therein. Any exceptions are noted below. [facility] Card Cath Procedure Codes Therapeutic Services & Ancillary Procedure 1: Cardiovascular Tx and Anc Procedures: 29220 Pericardiocentesis w / Imaging Moderate Sedation Procedure 1: Sedation/Anesthesia: 70018 Mod Sedation by the same physician;Init15 Min Child Age 5 & Up PG Care Time/CCT Total # of Minutes Spent Total Time Spent with Patient: Total time spent is greater than 50% in coordination of care (as documented) at patient's floor/unit and/or counseling patient:
--- NOTE | 2023-09-26 07:36 | XRay Report ---
XR chest 1V portable HISTORY: 52 years-old Male weakness acute weakness COMPARISON: CTA chest of same day TECHNIQUE: AP view of the chest FINDINGS: Globular enlargement of the cardiac silhouette. No pneumothorax or overt pulmonary edema. Trace right and small left pleural effusions with mild left basilar atelectasis. Bones appear grossly intact. IMPRESSION: 1. Globular enlargement of the cardiac silhouette corresponds to the large pericardial effusion seen on the same day CTA of the chest. 2. Trace right and small left pleural effusions with mild left basilar atelectasis. ACT 112: Negative or not required by law. The above report was generated using voice recognition software. It may contain grammatical, syntax o r spelling errors. Electronically signed by: Christopher Fox M.D. 09/26/2023 7:35 AM
[2023-09-26] MEDS: ICU Protocol for HYPERglycemia SCH (08:46)
--- NOTE | 2023-09-26 08:50 | Electrocardiogram Report ---
Test Reason : Blood Pressure : / mmHG Vent. Rate : 121 BPM Atrial Rate : 121 BPM P-R Int : 142 ms QRS Dur : 060 ms QT Int : 282 ms P-R-T Axes : 052 031 080 degrees QTc Int : 400 ms Sinus tachycardia Left atrial enlargement Low voltage QRS Diffuse Minor Nonspecific T wave abnormality Abnormal ECG No previous ECGs available Confirmed by Darrell Leiva ([id number]) on 09/26/2023 8:49:43 AM Referred By: REFERRED SELF Confirmed By:Darrell Leiva
[2023-09-26] MEDS ORDERED: COLCHICINE 0.6 MG TAB PO SCH (09:00)
[2023-09-26 09:19] LABS: Magnesium 1.9 mg/dl (1.7-2.4)
[2023-09-26] MEDS: PANTOprazole 40 MG TAB PO SCH (11:04)
[2023-09-26] MEDS: CEFEPIME 2,000 MG in SYRINGE 0 ML IV SCH (11:04)
[2023-09-26] MEDS: COLCHICINE 0.6 MG TAB PO SCH (11:04)
--- NOTE | 2023-09-26 12:52 | XCELERA ---
[id number] \\[id number]
--- NOTE | 2023-09-26 12:58 | Hospitalist Progress Note ---
"Date of Service September 26, 2023 Assessment & Plan (1) Pericardial effusion: (2) Syncope: (3) UTI (urinary tract infection): (4) Sepsis: Plan 52 year old male with PMH of GERD and BRENDA found with large pericardial effusion Pericardial Effusion | Syncope -CTA chest showing large pericardial effusion with thickened pericardial wall -Cardiology consulted -prosthetic lab technician am for a drainage: ~500 ml drainage - Manual pericardial drain aspiration -Cytology pending -Colchicine - Echo: large pericardial effusion with early echocardiographic signs of tamponade. - ICU following, keep on ICU until removal of pericardial drain -Continue maintenance fluids LR @ 125/hr UTI | Leukocytosis | SIRS -WBC of 18.5 on admission. ProCal 0.2, Lactate 1.8. Tachycardia -UA concerning for infection, urine and blood cultures pending Cefepime GERD: Continue PPI Diet: Regular diet Code Status: Full Code Admit to: ICU VTE Prophylaxis: Holding due to procedure/ drainage Admission and Anticipated Discharge Date Admission Date: September 26, 2023 Supervising Physician Co-Signing Physician Notes I personally examined the patient and verified all cash points of history and exam, discussed case, and agree with decision making with Dr Bucky Sosa a little chest discomfort. vitals noted nad heent nc at mmm laying in bed eating dinner breathing unlabored no accessory muscles good effort skin no rashes no pallor or icterus pericardial effusion - post pericardiocentesis - ?etiology - postviral/reactive vs other. continue ICU management, supportive care. appreciate cardiology input Subjective 52 year old with PMH gerd and BRENDA here due to large pericardia effusion. Unknown etiology. Taken to Lab cath this morning. Seen in the am, patient was sleeping comfortable, no labored breathing. Awaiting cytology results. Review of Systems Review of Systems: As per above Physical Exam Constitutional: no acute distress asleep comfortable Respiratory: normal respiratory effort; no respiratory distress and no labored breathing Auscultation: lungs clear to auscultation bilaterally Cardiovascular: RRR, no murmur, no edema Results & Data Results & Data Vital Signs (Past 12 Hours) Vital Signs Temp Pulse Pulse Resp BP BP Pulse Ox 09/26/23 12:18 36.7 C 09/26/23 12:00 99 H 17 114/71 92 09/26/23 11:00 98 H 17 119/74 91 09/26/23 10:00 102 H 24 114/68 91 09/26/23 09:15 102 H 18 109/76 95 09/26/23 09:00 96 H 17 129/69 97 09/26/23 08:30 100 H 11 L 116/77 95 09/26/23 08:15 100 H 16 115/73 95 09/26/23 08:00 105 H 15 119/70 89 L 09/26/23 07:45 105 H 25 H 118/76 90 09/26/23 07:31 104 H 20 120/76 88 L 09/26/23 04:10 99 H 20 127/81 98 09/26/23 04:00 101 H 18 114/84 99 09/26/23 03:00 98 H 18 108/90 99 09/26/23 01:58 105 H 18 105/72 99 09/26/23 01:00 113 H 23 97 O2 Del Method O2 Flow Rate 09/26/23 12:18 09/26/23 12:00 Room Air 09/26/23 11:00 Room Air 09/26/23 10:00 Room Air 09/26/23 09:15 Room Air 09/26/23 09:00 09/26/23 08:30 09/26/23 08:15 Nasal Cannula 2 09/26/23 08:00 Room Air 09/26/23 07:45 09/26/23 07:31 09/26/23 04:10 09/26/23 04:00 09/26/23 03:00 09/26/23 01:58 09/26/23 01:00 Resident Activity Tracking Resident Involvement: Resident Care Provided Care Provided: Adult Hospital Medicine"
[2023-09-26] MEDS: ACETAMINOPHEN 325 MG TAB PO PRN (14:51)
--- NOTE | 2023-09-26 16:45 | Billing Data ---
Date of Service September 26, 2023 Coding Level of Care Code 19357 SUB INP/OBS CARE
--- NOTE | 2023-09-26 20:20 | Communication Note ---
Date of Service: September 26, 2023 Manually drained patient's pericardial drain around 1845 (~12 hrs from initial pericardiocentesis). Drained 185ml of serosanguineous fluid (nutrient management specialist in color than initial fluid). Plan for repeat drain in a.m.
[2023-09-26] MEDS: MoRPHine SULFATE 2 MG/ML CARP IV PRN (22:06)
--- NOTE | 2023-09-27 01:38 | Billing Data ---
Date of Service September 26, 2023 Coding Level of Care Code 04306 INT INP/OBS CARE
[2023-09-27 04:48] LABS: Basophils # (auto) 0.03 K/uL (0.00-0.20); Basophils % (auto) 0.2 %; Eosinophils # (auto) 0.02 K/uL (0.00-0.50); Eosinophils % (auto) 0.1 %; Hematocrit (blood only) 41.6 % (42.0-52.0); Hemoglobin 13.8 g/dl (14.0-18.0); Immature Granulocytes % (auto) 0.7 %; Lymphocytes # (auto) 1.58 K/uL (1.20-3.40); Lymphocytes % (auto) 11.3 %; Mean Corpuscular Hemoglobin 29.5 pg (25.0-34.0); Mean Corpuscular Hgb Conc 33.2 g/dL (32.0-36.0); Mean Corpuscular Volume 88.9 fL (80.0-100.0); Mean Platelet Volume 9.6 fL (9.4-12.4); Monocytes # (auto) 1.24 K/uL (0.11-0.59); Monocytes % (auto) 8.9 %; Neutrophils # (auto) 10.99 K/uL (1.40-6.50); Neutrophils % (auto) 78.8 %; Platelet Count 315 K/uL (130-400); RDW Standard Deviation 48.6 fL (36.4-46.3); Red Blood Count 4.68 M/uL (4.70-6.10); White Blood Count 13.96 K/ul (4.8-10.8)
[2023-09-27 05:11] LABS: Albumin Level 3.2 gm/dl (3.4-5.0); BUN Creatinine Ratio 20.2 (10-20); Bilirubin Direct 0.2 mg/dl (0-0.2); Bilirubin,Total 0.7 mg/dl (0.2-1.0); Calcium 8.4 mg/dl (8.6-10.3); Est GFR (African American) 113.1 ml/min; Est GFR (Non-African American) 97.6 ml/min; Potassium 4.3 mmol/L (3.5-5.1); Total Protein 6.1 gm/dl (6.0-8.3)
--- NOTE | 2023-09-27 06:58 | Hospitalist Progress Note ---
Date of Service September 27, 2023 Assessment & Plan (1) Pericardial effusion: (2) Syncope: (3) UTI (urinary tract infection): (4) Sepsis: Plan 52 year old male with PMH of GERD and BRENDA found with large pericardial effusion Pericardial Effusion | Syncope -CTA chest showing large pericardial effusion with thickened pericardial wall -Cardiology consulted -labor relations officer am for a drainage: ~570 ml drainage total - Manual pericardial drain aspiration - Cytology pending, HOSEA pending - Colchicine - Echo: large pericardial effusion with early echocardiographic signs of tamponade. - ICU following, keep on ICU until removal of pericardial drain - Continue maintenance fluids LR @ 125/hr UTI | Leukocytosis | SIRS -WBC of 18.5, tachycardia, HR 120 on admission - ProCal 0.2, Lactate 1.8. - UA concerning for infection but urine Cx --> no growth - MRSA nares, neg - blood Cx --> no growth after 24 hrs - pericardial fluid Cx pending - pericardial fluid smears pending - continue Cefepime, 2000 mg, IV, TID GERD: Continue PPI Diet: Regular diet Code Status: Full Code Admit to: ICU VTE Prophylaxis: Holding due to procedure/ drainage Admission and Anticipated Discharge Date Admission Date: September 26, 2023 Supervising Physician Co-Signing Physician Notes Attending Physician Supervision Note: I independently interviewed and examined the patient and verified the cash history and physical, reviewed labs and image studies and agree with findings and care plan noted above. Pericardial effusion with syncope - echo with tamponade phys. s/p tap with drain placement. etiology - viral/inflammatory -continue drain -colchicine. -24 hour culture neg. AFB and fungal cx pending -HOSEA sent. SIRS - urine cx negative. procalcitonin normal. pericardial fluid 24 hour culture neg. if neg at 48 hours - d/c abx. -AFB and fungal cx for pericardial fluid pending. Subjective Patient 52 yo M w/ PMHx of GERD, mild sleep apnea who presented to the ED for a syncopal episode. Noted that he was seated at home when he felt a "warm millard", wave a nausea before passing out, falling to floor. Stated he "blacked out" but didn't hit head and came to within seconds. Noted he also had some left sided ch est pain for the past week which started after lifting some heavy weights while working out- assumed he just pulled a muscle (had torn pec muscle in the past) and has been taking naproxen. noted that he'd been feeling a bit "off" for the same time frame but neither can pinpoint specific symptoms. He'd been eating and drinking normally, denied urinary symptoms except his urine looking slightly darker in color. Noted having a kidney stone ~ 20 years ago but w/out kidney or urinary issues since then. Denied any SOB or AP. Patient noted that last week he had red "blister" in left axilla, it later opened, seemed to drain but no longer painful. 52 yo with PMHx GERD and BRENDA here due to large pericardial effusion. Unknown etiology. Taken to Lab cath yesterday morning. Seen in the am, patient was sleeping comfortable, no labored breathing. Awaiting cytology results. 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 Breathing is s Review of Systems Constitutional: + fatigue; no fever and no chills Respiratory: + dyspnea and + pain on inspiration; no cough, no chest congestion and no hemoptysis Cardiovascular: + chest pain at rest and + orthopnea (pa in worse when supine); no radiating jaw, neck or arm pain and no palpitations Gastrointestinal: + nausea (during episode of hypotension) ; no vomiting, no constipation and no diarrhea/loose stools Genitourinary: no dysuria, no urinary frequency or no hematuria Musculoskeletal: no back pain and no myalgia Neurologic: no loss of sensation, no tingling and no numbness Physical Exam Constitutional: WD/WN, vitals as above Respiratory: normal respiratory effort, lungs clear to auscultation Cardiovascular: RRR, no murmur, no edema Gastrointestinal (Abdomen): normal bowel sounds, soft, nontender, no h epatosplenomegaly Neurologic: moves all extremities and awake; not confused Psychiatric: A+Ox3, euthymic affect Results & Data Results & Data Vital Signs (Past 12 Hours) Vital Signs Temp Pulse Resp BP Pulse Ox O2 Del Method 09/27/23 05:00 104/79 09/27/23 05:00 88 18 89 L 02/05/24 04:00 128/79 09/27/23 04:00 95 H 22 89 L 09/27/23 03:52 36.7 C 09/27/23 03:00 126/78 09/27/23 03:00 95 H 20 89 L 09/27/23 02:00 113/70 09/27/23 02:00 93 H 22 90 09/27/23 01:00 110/69 09/27/23 01:00 88 20 89 L 09/27/23 00:00 123/69 09/27/23 00:00 93 H 25 H 91 09/27/23 00:00 36.9 C 09/27/23 00:00 98 H 09/26/23 23:00 119/70 09/26/23 23:00 99 H 20 90 09/26/23 22:00 113/69 09/26/23 22:00 90 25 H 91 09/26/23 21:00 118/67 09/26/23 21:00 87 20 91 09/26/23 20:00 Room Air 09/26/23 20:00 97 H 21 90 09/26/23 20:00 121/73 09/26/23 20:00 36.8 C 09/26/23 19:20 109 H 20 88 L 09/26/23 19:10 103 H 22 90 09/26/23 19:00 134/77 09/26/23 19:00 101 H 19 90 Resident Activity Tracking Resident Involvement: Resident Care Provided Care Provided: Adult Hospital Medicine
--- NOTE | 2023-09-27 07:14 | Cardiology Progress Note ---
Date of Service September 27, 2023 Assessment & Plan (1) Pericardial effusion: Plan: 2. Syncope 3. UTI 4. GERD Drain output is reduced, with <40 cc of straw-colored fluid over 9 hours. Only small pericardial effusion on echo. Drain removed this evening Suspect pericardial effusion likely viral in nature. Pericardial studies still pending. Plan to repeat limited echo in a.m. Continue colchicine Additional NSAIDs as needed for chest pain Follow-up pericardial studies From a cardiac standpoint okay with transfer to telemetry now that drain removed. If reaccumulation of pericardial fluid is limited on echo could potentially be discharged tomorrow with close cardiology follow-up Admission and Anticipated Discharge Date Admission Date: September 26, 2023 Subjective Patient with some mild residual chest pain, particularly with taking deep breath. Manual pericardial drainage at 8AM - 70 straw-colored fluid. Repeat limited echo at 3 PM showed small pericardial effusion without evidence of tamponade Repeat drainage at 5 PM 35 mL of welder apprentice straw-colored fluid. Drain removed. Review of Systems Review of Systems: All systems reviewed & are unremarkable except as noted in HPI & below Physical Exam Physical Exam: General: Comfortable HEENT: Sclerae anicteric Lungs: Clear to auscultation bilaterally Cardiac: Regular rate and rhythm, no murmurs. No erythema around pericardial drain. Vascular: 2+ radial Abdomen: Soft, nontender Extremities: Well perfused, no peripheral edema Neuro: Nonfocal Psych: Alert orient x3, normal affect and mood Results & Data Vital Signs (Past 12 Hours) Vital Signs Temp Pulse Resp BP Pulse Ox O2 Del Method 09/27/23 05:00 104/79 09/27/23 05:00 88 18 89 L 09/27/23 04:00 128/79 09/27/23 04:00 95 H 22 89 L 09/27/23 03:52 98.1 F 09/27/23 03:00 126/78 09/27/23 03:00 95 H 20 89 L 09/27/23 02:00 113/70 09/27/23 02:00 93 H 22 90 09/27/23 01:00 110/69 09/27/23 01:00 88 20 89 L 09/27/23 00:00 123/69 09/27/23 00:00 93 H 25 H 91 09/27/23 00:00 98.4 F 09/27/23 00:00 98 H 09/26/23 23:00 119/70 09/26/23 23:00 99 H 20 90 09/26/23 22:00 113/69 09/26/23 22:00 90 25 H 91 09/26/23 21:00 118/67 09/26/23 21:00 87 20 91 09/26/23 20:00 Room Air 09/26/23 20:00 97 H 21 90 09/26/23 20:00 121/73 09/26/23 20:00 98.2 F 09/26/23 19:20 109 H 20 88 L PG Care Time/CCT Total # of Minutes Spent Total Time Spent with Patient: Total time spent is greater than 50% in coordination of care (as documented) at patient's floor/unit and/or counseling patient: Coding Level of Care Code 49709 SUB INP/OBS CARE 3/50MIN Diagnoses Pericardial effusion I31.39
--- NOTE | 2023-09-27 09:02 | Critical Care Progress Note ---
Date of Service September 27, 2023 Assessment & Plan (1) Pericardial effusion: (2) UTI (urinary tract infection): (3) GERD (gastroesophageal reflux disease): (4) Elevated serum glucose: (5) SIRS (systemic inflammatory response syndrome): Plan Reason Critically Ill: 52 YOM presents with syncope from home and found to have moderate to large pericardial effusion without current tamponade physiology, he is pending going to interventional suite for drainage by interventional c ardiology this morning. Neuro - No acute needs CAM ICU: NEGATIVE Cardiac - Pericardial Effusion- subacute likely, syncope - Await cytology results from drainage of effusion - differential broad at this time- likely subacute with amount of fluid and symptoms- - ESR, CRP, EBV rapid panel, CMV- pending - Job exposure as questionable possibility- works in [email or web address] - H2020 and screen - Continue with IVF as he is with favorable hemodynamics and well perfused at this time on physical exam - Syncope is likely in the setting of pericardial effusion Respiratory - NO acute needs - CXR and CTA of chest without acute pulmonary process or embolism GI - GERD - continue PPI RENAL/LYTES - NO acute needs - See ID below - Unsure of his PSA screening or urinary habits- evaluate closer following procedure if malignancy remains on diff ENDO - Elevated serum glucose without diagnosis of DM - ICU hyperglycemia protocol - goal <180mg/dl - Defer HGBA1c and management to medicine or PCP HEME - Leukocytosis - See below - Await cytology from his pericardial fluid ID - SIRS, UTI - Patient technically meets SIRS with tachycardia and elevated WBC - sepsis criteria met with urine as possible source -Patient started on cefepime for his primary team. - UA with LE, NI, bacteria +1 - await culture - PCT negative - Await culture results from his pericardial effusion as well LINES/IV ACCESS - PIV Continue use of these lines DVT PROPHYLAXIS - SCDS, hold chemoprophylaxis at this time for planned pericardicentesis and while drain is in place DISPO: Per cardiology service. Admission and Anticipated Discharge Date Admission Date: September 26, 2023 Subjective Patient seen and examined. He is complaining of some pleurisy and mild shortness of breath. He denies any fevers, chills or night sweats. Denies any dizziness. Review of Systems Review of Systems: All systems reviewed & are unremarkable except as noted in HPI & below Physical Exam Physical Exam: PHYSICAL EXAM: General: awake, alert, no apparent distress Head: Normocephalic, atraumatic ENT: PERRLA, EOMI, no pharyngeal exudate, mucous membranes moist Neuro: AAO x 3, speech clear and appropriate, strength intact bilaterally 5/5, sensation intact and equal all extremities and dermatomes, no pronator drift Chest: equal rise and fall of the chest, no accessory muscle use, no heaves or thrills, Clear to auscultation, on room air, Cardiac: Regular rate and rhythm, telemetry reviewed- NSR, skin warm dry, cap refill <3 seconds, peripheral pulses +2 no JVD, no murmur, S1S2 without muff ling. Pigtail catheter noted in the left anterior chest wall. GI: NABS x 4 quadrants, soft, nontender to palpation, no rebound, guarding or tenderness : Spontaneously voiding, no pain, no CVA tenderness, Extremities: Normal inspection, no peripheral edema or erythema, calfs nontender to palpation Psych: Normal mood and affect Skin: no rash or erythema Results & Data Results & Data Vital Signs (Past 12 Hours) Vital Signs Temp Pulse Resp BP Pulse Ox 09/27/23 05:00 104/79 09/27/23 05:00 88 18 89 L 09/27/23 04:00 128/79 09/27/23 04:00 95 H 22 89 L 09/27/23 03:52 36.7 C 09/27/23 03:00 126/78 09/27/23 03:00 95 H 20 89 L 09/27/23 02:00 113/70 09/27/23 02:00 93 H 22 90 09/27/23 01:00 110/69 09/27/23 01:00 88 20 89 L 09/27/23 00:00 123/69 09/27/23 00:00 93 H 25 H 91 09/27/23 00:00 36.9 C 09/27/23 00:00 98 H 09/26/23 23:00 119/70 09/26/23 23:00 99 H 20 90 09/26/23 22:00 113/69 09/26/23 22:00 90 25 H 91 09/26/23 21:00 118/67 09/26/23 21:00 87 20 91 Coding Level of Care Code 46443 SUB INP/OBS CARE 2/35MIN Diagnoses Pericardial effusion I31.39 UTI (urinary tract infection) N39.0; R31.9 Hematuria presence: with hematuria Urinary tract infection type: site unspecified GERD (gastroesophageal reflux disease) K21.9 Elevated serum glucose R73.9 SIRS (systemic inflammatory response syndrome) R65.10 (2) UTI (urinary tract infection) Hematuria presence: with hematuria Urinary tract infection type: site unspecified Qualified Code(s): N39.0 - Urinary tract infection, site not specified; R31.9 - Hematuria, unspecified
[2023-09-27] MEDS: oxyCODONE HCL IR 5 MG TAB (IMMEDIATE RELEASE) PO PRN (10:33)
[2023-09-27] MEDS: DOCUSATE SODIUM/SENNA 50/8.6MG TAB PO SCH (10:33)
--- NOTE | 2023-09-27 22:32 | XCELERA ---
[id number]
[2023-09-28 04:57] LABS: Basophils # (auto) 0.05 K/uL (0.00-0.20); Basophils % (auto) 0.4 %; Eosinophils # (auto) 0.05 K/uL (0.00-0.50); Eosinophils % (auto) 0.4 %; Hematocrit (blood only) 41.8 % (42.0-52.0); Hemoglobin 13.9 g/dl (14.0-18.0); Immature Granulocytes # (auto) 0.11 K/uL (0.01-0.20); Immature Granulocytes % (auto) 0.8 %; Lymphocytes # (auto) 2.19 K/uL (1.20-3.40); Lymphocytes % (auto) 15.4 %; Mean Corpuscular Hemoglobin 29.3 pg (25.0-34.0); Mean Corpuscular Hgb Conc 33.3 g/dL (32.0-36.0); Mean Platelet Volume 9.9 fL (9.4-12.4); Monocytes # (auto) 1.39 K/uL (0.11-0.59); Monocytes % (auto) 9.8 %; Neutrophils # (auto) 10.42 K/uL (1.40-6.50); Neutrophils % (auto) 73.2 %; Platelet Count 363 K/uL (130-400); RDW Coefficient of Variation 15.2 % (11.5-14.5); RDW Standard Deviation 48.5 fL (36.4-46.3); Red Blood Count 4.75 M/uL (4.70-6.10); White Blood Count 14.21 K/ul (4.8-10.8)
[2023-09-28 05:13] LABS: BUN Creatinine Ratio 19.1 (10-20); Calcium 8.7 mg/dl (8.6-10.3); Creatinine Clr Calc Pharmacy 87.1 ml/min; Est GFR (African American) 88.4 ml/min; Est GFR (Non-African American) 76.2 ml/min; Potassium 4.5 mmol/L (3.5-5.1)
--- NOTE | 2023-09-28 07:22 | Hospitalist Progress Note ---
Date of Service September 28, 2023 Assessment & Plan (1) Pericardial effusion: (2) Syncope: (3) UTI (urinary tract infection): (4) Sepsis: Plan 52 year old male with PMH of GERD and BRENDA found with large pericardial effusion Pericardial Effusion | Syncope -CTA chest showing large pericardial effusion with thickened pericardial wall -Cardiology consulted -metallurgical laboratory assistant am for a drainage: ~570 ml drainage total - Manual pericardial drain aspiration - Cytology pending, HOSEA pending - Colchicine - Echo: large pericardial effusion with early echocardiographic signs of tamponade. - ICU following, keep on ICU until removal of pericardial drain - Continue maintenance fluids LR @ 125/hr UTI | Leukocytosis | SIRS -WBC of 18.5, tachycardia, HR 120 on admission - ProCal 0.2, Lactate 1.8. - UA concerning for infection but urine Cx --> no growth - MRSA nares, neg - blood Cx --> no growth after 24 hrs - pericardial fluid Cx pending - pericardial fluid smears pending - continue Cefepime, 2000 mg, IV, TID GERD: Continue PPI Diet: Regular diet Code Status: Full Code Admit to: ICU VTE Prophylaxis: Holding due to procedure/ drainage Admission and Anticipated Discharge Date Admission Date: September 26, 2023 Subjective Patient 52 yo M w/ PMHx of GERD, mild sleep apnea who presented to the ED for a syncopal episode. Noted that he was seated at home when he felt a "warm millard", wave a nausea before passing out, falling to floor. Stated he "blacked out" but didn't hit head and came to within seconds. Noted he also had some left sided chest pain for the past week which started after lifting some heavy weights while working out- assumed he just pulled a muscle (had torn pec muscle in the past) and has been taking naproxen. noted that he'd been feeling a bit "off" for the same time frame but neither can pinpoint specific symptoms. He'd been eating and drinking normally, denied urinary symptoms except his urine looking slightly darker in color. Noted having a kidney stone ~ 20 years ago but w/out kidney or urinary issues since then. Denied any SOB or AP. Patient noted that last week he had red "blister" in left axilla, it later opened, seemed to drain but no longer painful. 52 yo with PMHx GERD and BRENDA here due to large pericardial effusion. Unknown e tiology. Taken to Lab cath yesterday morning. Seen in the am, patient was sleeping comfortable, no labored breathing. Awaiting cytology results. 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 Breathing is s Review of Systems Review of Systems: As per above Constitutional: + fatigue; no fever and no chills Respiratory: + dyspnea and + pain on inspiration; no cough, no chest congestion and no hemoptysis Cardiovascular: + chest pain at rest and + orthopnea (pa in worse when supine); no radiating jaw, neck or arm pain and no palpitations Gastrointestinal: + nausea (during episode of hypotension) ; no vomiting, no constipation and no diarrhea/loose stools Genitourinary: no dysuria, no urinary frequency or no hematuria Musculoskeletal: no back pain and no myalgia Neurologic: no loss of sensation, no tingling and no numbness Physical Exam Constitutional: WD/WN, vitals as above Respiratory: normal respiratory effort, lungs clear to auscultation Cardiovascular: RRR, no murmur, no edema Gastrointestinal (Abdomen): normal bowel sounds, soft, nontender, no hepatosplenomegaly Neurologic: moves all extremities and awake; not confused Psychiatric: A+Ox3, euthymic affect Results & Data Results & Data Vital Signs (Past 12 Hours) Vital Signs Temp Pulse Resp BP Pulse Ox 09/28/23 04:00 36.8 C 09/28/23 03:00 100 H 22 89 L 09/28/23 03:00 95/75 L 09/28/23 02:00 91 H 20 90 09/28/23 02:00 100/65 09/28/23 01:00 112/66 09/28/23 01:00 97 H 26 H 82 L 09/28/23 00:00 85 17 94 09/28/23 00:00 107/70 09/28/23 00:00 36.8 C 09/28/23 00:00 85 09/27/23 23:00 83 15 95 09/27/23 22:00 86 16 95 09/27/23 22:00 110/67 09/27/23 21:00 92 H 22 85 L 09/27/23 21:00 114/65 09/27/23 20:00 105/67 09/27/23 20:00 91 H 21 95 09/27/23 20:00 36.8 C Resident Activity Tracking Resident Involvement: Resident Care Provided Care Provided: Adult Hospital Medicine (2) Syncope Encounter type: initial encounter (3) UTI (urinary tract infection) Hematuria presence: with hematuria Urinary tract infection type: site unspecified Qualified Code(s): N39.0 - Urinary tract infection, site not specified; R31.9 - Hematuria, unspecified
--- NOTE | 2023-09-28 10:21 | Critical Care Progress Note ---
Date of Service September 28, 2023 Assessment & Plan (1) Pericardial effusion: (2) UTI (urinary tract infection): (3) GERD (gastroesophageal reflux disease): (4) Elevated serum glucose: (5) SIRS (systemic inflammatory response syndrome): Plan Reason Critically Ill: 52 YOM presents with syncope from home and found to have moderate to large pericardial effusion without tamponade physiology. Pericardial drain has been removed 09/27/2023. Studies pending from the pericardial fluid along with autoimmune studies. No significant hemodynamic issues in the past 48 hours. Patient stable for downgrade out of the ICU. Critical care services will sign off. Please call with questions. Thank you. Admission and Anticipated Discharge Date Admission Date: September 26, 2023 Subjective Pericardial drain removed last night. Patient notes that his pleurisy is improved substantially. He denies any shortness of breath at rest. No fevers, chills or night sweats. Review of Systems Review of Systems: All systems reviewed & are unremarkable except as noted in HPI & below Physical Exam Physical Exam: PHYSICAL EXAM: General: awake, alert, no apparent distress Head: Normocephalic, atraumatic ENT: PERRLA, EOMI, no pharyngeal exudate, mucous membranes moist Neuro: AAO x 3, speech clear and appropriate, strength intact bilaterally 5/5, sensation intact and equal all extremities and dermatomes, no pronator drift Chest: equal rise and fall of the chest, no accessory muscle use, no heaves or thrills, Clear to auscultation, on room air, Cardiac: Regular rate and rhythm, telemetry reviewed- NSR, skin warm dry, cap refill <3 seconds, peripheral pulses +2 no JVD, no murmur, S1S2 without muffling. GI: NABS x 4 quadrants, soft, nontender to palpation, no rebound, guarding or tenderness : Spontaneously voiding, no pain, no CVA tenderness, Extremities: Normal inspection, no peripheral edema or erythema, calfs nontender to palpation Psych: Normal mood and affect Skin: no rash or erythema Results & Data Results & Data Vital Signs (Past 12 Hours) Vital Signs Temp Pulse Resp BP Pulse Ox O2 Del Method 09/28/23 08:00 97 H 19 93 09/28/23 08:00 116/70 09/28/23 08:00 37.3 C 02/06/24 08:00 94 H 09/28/23 07:00 97/65 L 09/28/23 07:00 88 15 92 Room Air 09/28/23 04:00 36.8 C 09/28/23 03:00 100 H 22 89 L 09/28/23 03:00 95/75 L 09/28/23 02:00 91 H 20 90 09/28/23 02:00 100/65 09/28/23 01:00 112/66 09/28/23 01:00 97 H 26 H 82 L 09/28/23 00:00 85 17 94 09/28/23 00:00 107/70 09/28/23 00:00 36.8 C 09/28/23 00:00 85 09/27/23 23:00 83 15 95 Coding Level of Care Code 05012 SUB INP/OBS CARE 09/16MIN Diagnoses Pericardial effusion I31.39 UTI (urinary tract infection) N39.0; R31.9 Hematuria presence: with hematuria Urinary tract infection type: site unspecified GERD (gastroesophageal reflux disease) K21.9 Elevated serum glucose R73.9 SIRS (systemic inflammatory response syndrome) R65.10 (2) UTI (urinary tract infection) Hematuria presence: with hematuria Urinary tract infection type: site unspecified Qualified Code(s): N39.0 - Urinary tract infection, site not specified; R31.9 - Hematuria, unspecified
[2023-09-28 13:37] LABS: Anti Nuclear Antibody Screen NEGATIVE (NEGATIVE); CMV IgM Antibody <30.00 AU/mL; EBV Nuclear Ag Antibody <18.00 U/mL; EBV Virus Capsid Ag IgG Ab <18.00 U/mL; Epstein Barr Virus Early Ag Ab <9.00 U/mL
--- NOTE | 2023-09-28 15:01 | Discharge Summary ---
Date of Service September 28, 2023 Admission HPI Per Admitting Provider Tin Lyons is a 52 year-old male with past medical history of GERD and mild sleep apnea who presented to the ED for a syncopal episode. He notes that he was seated at home when he felt a "warm millard" and wave a nausea before he passed out and fell to the floor. He states he did "black out" but did not hit his head and came to within seconds. He notes he has also had some left sided chest pain for the wpast week which started after lifting some heavy weights while working out- assumed he just pulled a muscle (as he has torn her pec muscle in the past) and has been taken naproxen for this. His notes that he has been feeling a bit "off" for the same time frame but neither can pinpoint specific symptoms. He has been eating and drinking normally, denies any urinary symptoms except his urine looking slightly darker in color. He notes having a kidney stone about 20 years ago but has not had any kidney or urinary issues since then. He denies any shortness of breath or abdominal pain. Patient does note that last week he had a red "blister" at his left axilla, it later opened and seemed to drain but is no longer painful or bothersome. Prior to encounter, patient had an additional syncopal episode. At time of entering, patient's symptoms had resolved and was resting comfortably although patient's head appeared slightly dusky in color. ED Course: -Chest x-ray, CTA chest -1x Cefepime -ProCal, lactate WNL. UA and blood cultures collected - ~2L NSS boluses Admission Exam Per Admitting Provider Constitutional: WD/WN, vitals as above no acute distress Eyes: + anicteric sclerae and PERRL; no conjun ctival abnormality ENMT: Ears: no external ear abnormality Nose: no external nose abnormality Face/head appears slightly dusky after syncopal episode. On re-evaluation, face of normal color. Respiratory: normal respiratory effort; no respiratory distress Auscultation: lungs clear to auscultation bilaterally Breaths slightly shallow Cardiovascular: Rate/Rhythm: regular rate and regular rhythm Extremities: no edema Limbs well perfused Gastrointestinal (Abdomen): normal bowel sounds, soft, nontender, no hepatosplenomegaly Skin: 1cm erythematous raised bump at left axi lla, no extending erythema or fluctuance. Nontender to palpation Psychiatric: A+Ox3, euthymic affect Principal Diagnosis pericardial effusion Discharge Exam Constitutional WD/WN, vitals as above Respiratory normal respiratory effort, lungs clear to auscultation Cardiovascular RRR, no murmur, no edema Extremities: no calf tenderness and no pedal edema Gastrointestinal (Abdomen) normal bowel sounds, soft, nontender, no hepatosplenomegaly Neurologic moves all extremities and awake Psychiatric A+Ox3, euthymic affect Discharge Data Allergies Allergy/AdvReac Type Severity Reaction Status Date / Time cat dander Allergy Intermediate CONGESTION Verified 09/26/23 00:44 house dust Allergy Intermediate CONGESTION Verified 09/26/23 00:44 Consultations 09/26/23 02:17 ED Decision to Admit Stat 09/26/23 08:08 Consult Aerospace Engineer Officer Armament Routine 09/26/23 20:39 Consult Cardiology Routine Procedures Performed Operation Date: 09/26/23 04:30 Actual Procedures p Pericardiocentesis - Terence Alvarado MD s Fluoroscopy Up To 1 Hour - Terence Alvarado MD s Ultrasound Vascular Access - Terence Alvarado MD Ordered Studies 09/26/23 02:49 CT angio chest dissec wo/w con Stat 09/26/23 04:27 CL Cath Imgs for PACS use only Stat Hospital Course (1) Pericardial effusion: (2) Syncope: Plan 52 year old male with PMH of GERD and BRENDA found with large pericardial effusion Pericardial Effusion | Syncope -CTA chest showed large pericardial effusion with thickened pericardial wall -Cardiology consulted - Echo: large pericardial effusion with early echocardiographic signs of tamponade. - laboratory mechanic helper for drainage: ~570 ml drainage total - Cytology pericardial fluid aerobic/anaerobic culture neg. fungal, AFB culture pending - HOSEA, negative - Continue colchicine, 0.6 mg, PO, BID for 4-12 weeks - NSAIDS as needed - will F/U with cardiology as an outpatient in a few weeks Abnormal UA | Leukocytosis | SIRS - no findings of UTI or sepsis - WBC of 18.5, tachycardia, HR 120 on admission - ProCal 0.2, Lactate 1.8. - UA concerning for infection but urine Cx --> no growth - MRSA nares, neg - blood Cx --> no growth after 48 hrs - discontinued Cefepime, 2000 mg, IV, TID GERD: Continue PPI as an outpatient Total Time Total Time Spent Total Time Spent (In Minutes): see attending attestation Discharge Plan Discharge Items Patient Disposition: Home - Self-Care Reason For Visit: SYNCOPE, UTI Discharge Diagnosis: Pericardial Effusion Activity: Per Instructions section Non-emergency contact: Primary Care Provider and Nurse Anesthetist Call non-emergency contact if: you have any medication questions Follow-up/Referrals: Ning Castelan, [Outside Practitioners] - Diet: Regular Addtl Attending Provider Instructions: You were admitted to the hospital for syncope, chest pain. You were treated with colchicine, oxycodone, Tylenol, pantoprazole, cefepime and pericardiocentesis. A discharge summary will be sent to your primary care physician to ensure continuity of care. Please bring this discharge summary with you to your next office appointment so that your provider can review it at that time. Please modify activity for the first few weeks post-discharge, engage only in mild aerobic activity and escalate as tolerated or as you see fit and at recommendations from your lithographic printing machinist during follow up appointment. Follow-up appointments: We have requested a follow-up appointment with your primary care physician within one week of discharge. Please call their office if you do not hear from them. We have requested a follow-up appointment with a [facility] lithographic printing machinist within a few weeks of discharge. Please call their office if you do not hear from them. Keep all your follow-up appointments as already scheduled. If you cannot make an appointment, notify your provider. Medications: Your medication list has been reviewed and reconciled upon discharge to ensure accuracy and continuity of care. An updated list of all your medications is included with your hospital discharge paperwork. Please review this list closely, and make note of any changes. We sent a new medication called colchicine to your pharmacy. Take colchicine, 0.6 mg/one tablet, twice a day for 4 weeks or as directed by your lithographic printing machinist during follow up appointment. Take an NSAID, such as ibuprofen or naproxen, as needed according to instructions on the bottle for any residual pain. Take your medications as instructed; do not skip a dose of your medicines. Make sure all of your doctors know every medicine you are taking (including [id number] medicines, vitamins, and supplements). Call your primary care provider before taking any new medicines (including zuyb-xhi-owyrstk medicines, vitamins, and supplements), because some of these may interact with your current medications, or may make your symptoms worse. Tell your primary care provider if you cannot afford your medications. CONTACT YOUR PRIMARY CARE PROVIDER if you experience any of the following: recurrent lightheadedness/dizziness, passing out, chest pain/tightness shortness of breath Difficulty following your treatment plan, or difficulty taking medications CALL 911 OR GO TO THE EMERGENCY DEPARTMENT if you experience any of the following: Sudden, severe abdominal pain or nausea/vomiting Severe chest pain, or chest pain that radiates (moves) to your jaw or arm Sudden, severe shortness of breath or difficulty breathing Thank you for allowing us to participate in your care Pending Studies at Discharge: No Stand-Alone Forms: My [facility], Smoking Cessation Medications and DC Order Prescriptions: New colchicine 0.6 mg capsule 0.6 mg PO BID Qty: 60 0RF Continued naproxen sodium [Aleve] 220 mg Tablet 220 mg PO BID PRN (Reason: Pain) omeprazole magnesium [Prilosec OTC] 20 mg Tablet,Delayed Release (Dr/Ec) 20 mg PO DAILY Discharge Orders: Discharge Order (Routine); Ordered 09/28/23 Ordered By: Terence Mcneil Admission Data Admit Date/Time: 09/26/23 06:21 Attending Provider: Nae Navas Admit Provider: Kaley Kothari Primary Care Provider: Terence Cobos Other Providers: Rose Anderson; Arsalan Forbes; Sergio Culver; Terence Alvarado Other Interventions: Discharge Summary Assessment (RN) Last Done: 09/28/23 16:02 Supervising Physician Co-Signing Physician Notes Attending Physician Supervision Note: I independently interviewed and examined the patient and verified the cash history and physical, reviewed labs and image studies and agree with findings and care plan noted above. Pericardial effusion with syncope - echo on admission with tamponade phys. s/p tap with drain placement. etiology - likely viral. cytology neg. inflammatory marker pending on dishcarge. -colchicine on discharge with prn NSAID for chest pain. . -pericardial fluid culture neg. AFB and fungal cx pending - outpatient f/u. -HOSEA negative Follow pleural effusion as outpatient. Cardio f/u in 2 to 3 weeks with repeat echo SIRS - secondary to viral illness. resolved.
--- NOTE | 2023-09-28 15:56 | XRay Report ---
XR chest 2V PA/lateral CLINICAL HISTORY: pleural effusion COMPARISON STUDY: Chest radiograph and chest CT September 26, 2023. FINDINGS: Enlargement of the cardiac silhouette has mildly decreased since prior examination. A small left pleural effusion has slightly increased. Left basilar opacity has increased. There is no eviden ce for pulmonary edema. There is no pneumothorax. Minimal right basilar opacity favors atelectasis. IMPRESSION: 1. Mild decrease in size of the cardiac silhouette status post pericardiocentesis. 2. Small left pleural effusion with left basilar opacity, slightly increased since prior exam. 3. No evidence for pulmonary edema. ACT 112: Negative or not required by law. Electronically signed by: Alfredito Winters M.D. 09/28/2023 3:54 PM
--- NOTE | 2023-09-28 16:16 | Cardiology Progress Note ---
Date of Service September 28, 2023 Assessment & Plan (1) Pericardial effusion: Plan: 2. Syncope 3. UTI 4. GERD 5. Left pleural effusion Trace residual pericardial effusion on echo today. No echocardiographic signs of tamponade. Suspect pericardial effusion likely viral in nature. Cytology negative. Other pericardial studies pending. From a cardiac standpoint okay with discharge today. Continue colchicine Additional NSAIDs as needed for chest pain Follow-up pericardial studies Follow-up pleural effusion as an outpatient Follow-up with me in 2 to 3 weeks with repeat echo Admission and Anticipated Discharge Date Admission Date: September 26, 2023 Subjective Feeling well today. States his chest pain almost immediately resolved after removal of pericardial drain. Denies any significant shortness of breath. Appetite good. Reviewed repeat echocardiogram todaysmall residual pericardial effusion. No evidence of tamponade. Does have a new left pleural effusion Review of Systems Review of Systems: All systems reviewed & are unremarkable except as noted in HPI & below Physical Exam Physical Exam: General: Comfortable HEENT: Sclerae anicteric Lungs: Clear to auscultation bilaterally Cardiac: Regular rate and rhythm, no murmurs. No erythema around pericardial drain site. Vascular: 2+ radial Abdomen: Soft, nontender Extremities: Well perfused, no peripheral edema Neuro: Nonfocal Psych: Alert orient x3, normal affect and mood Results & Data Vital Signs (Past 12 Hours) Vital Signs Temp Pulse Pulse Resp BP BP Pulse Ox 09/28/23 16:02 99.1 F 98 H 23 108/90 90 09/28/23 15:00 95 H 23 90 09/28/23 15:00 111/67 09/28/23 14:00 96 H 27 H 92 09/28/23 14:00 115/67 09/28/23 13:00 101 H 30 H 92 09/28/23 13:00 98/55 L 09/28/23 12:00 97 H 26 H 91 09/28/23 12:00 102/62 09/28/23 11:00 105/64 09/28/23 11:00 94 H 25 H 09/28/23 10:00 94 H 21 92 09/28/23 10:00 110/64 09/28/23 09:00 93 H 16 93 09/28/23 09:00 116/70 09/28/23 08:00 97 H 19 93 09/28/23 08:00 116/70 09/28/23 08:00 99.1 F 09/28/23 08:00 94 H 09/28/23 07:00 97/65 L 09/28/23 07:00 88 15 92 O2 Del Method 09/28/23 16:02 09/28/23 15:00 09/28/23 15:00 09/28/23 14:00 09/28/23 14:00 09/28/23 13:00 09/28/23 13:00 09/28/23 12:00 09/28/23 12:00 09/28/23 11:00 09/28/23 11:00 09/28/23 10:00 09/28/23 10:00 09/28/23 09:00 09/28/23 09:00 09/28/23 08:00 09/28/23 08:00 09/28/23 08:00 09/28/23 08:00 09/28/23 07:00 09/28/23 07:00 Room Air PG Care Time/CCT Total # of Minutes Spent Total Time Spent with Patient: Total time spent is greater than 50% in coordination of care (as documented) at patient's floor/unit and/or counseling patient: Coding Level of Care Code 15878 SUB INP/OBS CARE 3/50MIN Diagnoses Pericardial effusion I31.39
--- NOTE | 2023-09-28 17:56 | XCELERA ---
[id number] \\[id number]
[2023-09-28 18:52] LABS: Fluid Appearance BLOODY; Fluid Basophil % 0 %; Fluid Color RED; Fluid Comment DNR; Fluid Eosinophil % 1 %; Fluid Lymphocytes % 58 %; Fluid Mesothelial % 0 %; Fluid Monocyte/Macrophage % 6 %; Fluid Neutrophil % 35 %; Fluid Total Nucleated Cell Ct 450 cells/uL; Fluid Type NOT GIVEN
== END 2023-09-28 17:35 | disposition home or self-care (01) | DRG 314 ==
LOC: SUATTDRO → ED 00:07 → CC 06:20 → SUATTDRO 06:21 → 1E 06:21 → CC 06:35